=== PATIENT | male | born 1960 | race African-American/Black ===

== ENCOUNTER 2016-12-11 01:28 | Observation (INO) | payer OTHER ==
[~2016-12-11] VITALS: Ht 185.4 cm; Wt 109.1 kg
--- NOTE | 2016-12-11 01:39 | PHYS DOC ---
Adult General HPI HPI Patient is a 56 year old -Micron[place] Micron[place] male who presents with status. According to EMS he was trying to give money away to someone who wasn't there and seeing a dog it wasn't there. The patient states he lives by himself. He thinks he is at and has stomatitis several times even though I told several times that he is at [place]. He states he called transportation to be transported but is unsure why he needs to be transported. He denies any fevers chills nausea or vomiting. He denies any abdominal pain or dysuria. He denies any neck pain or headache. He states he's been at the [facility] several times and sometimes he has seizures. Review of Systems Review of Systems Constitutional: Denies fever or chills [] Eyes: Denies change in visual acuity, redness, or eye pain [] HENT: Denies nasal congestion or sore throat [] Respiratory: Denies cough or shortness of breath [] Cardiovascular: No additional information not addressed in HPI [] GI: Denies abdominal pain, nausea, vomiting, bloody stools or diarrhea [] : Denies dysuria or hematuria [] Musculoskeletal: Denies back pain or joint pain [] Integument: Denies rash or skin lesions [] Neurologic: Denies headache, focal weakness or sensory changes [] Endocrine: Denies polyuria or polydipsia [] Current Medications Current Medications Current Medications Medications (Trade) Dose Ordered Sig/Jacob Start Time Stop Time Status Last Admin Dose Admin Ceftriaxone Sodium 1 gm/ Sodium Chloride 50 ml @ 100 mls/hr Q24H 12/11/16 03:30 UNV Sodium Chloride 1,000 ml @ 1,000 mls/hr 1X ONCE 12/11/16 03:00 12/11/16 03:59 12/11/16 02:45 1,000 MLS/HR Allergies Allergies Allergies Coded Allergies Type Severity Reaction Last Updated Verified No Known Drug Allergies 12/11/16 No Physical Exam Physical Exam Constitutional: Well developed, well nourished, no acute distress, non-toxic appearance. [] HENT: Normocephalic, atraumatic, bilateral external ears normal, oropharynx moist, no oral exudates, nose normal. [] Eyes: PERRLA, EOMI, conjunctiva normal, no discharge. [] Neck: Normal range of motion, no tenderness, supple, no stridor. [] Cardiovascular:Heart rate regular rhythm, no murmur [] Lungs & Thorax: Bilateral breath sounds clear to auscultation [] Abdomen: Bowel sounds normal, soft, no tenderness, no masses, no pulsatile masses. [] Skin: Warm, dry, no erythema, no rash. [] Back: No tenderness, no CVA tenderness. [] Extremities: No tenderness, no cyanosis, no clubbing, ROM intact, no edema. [] Neurologic: Alert and oriented X 1, normal motor function, normal sensory function, no focal deficits noted. [] Psychologic: Affect normal, mood normal. [] Current Patient Data Vital Signs Vital Signs Date Time Temp Pulse Resp B/P (MAP) Pulse Ox O2 Delivery O2 Flow Rate FiO2 12/11/16 01:56 98.3 125 25 135/93 (107) 100 Room Air 98.3 Lab Values Laboratory Tests Test 12/11/16 01:54 12/11/16 02:18 White Blood Count 6.5 x10^3/uL (4.0-11.0) Red Blood Count 3.75 x10^6/uL (4.30-5.70) L Hemoglobin 12.9 g/dL (13.0-17.5) L Hematocrit 37.4 % (39.0-53.0) L Mean Corpuscular Volume 100 fL (79-100) Mean Corpuscular Hemoglobin 34 pg (25-35) Mean Corpuscular Hemoglobin Concent 35 g/dL (31-37) Red Cell Distribution Width 14.2 % (11.5-14.5) Platelet Count 212 x10^3/uL (140-400) Neutrophils (%) (Auto) 68 % (31-73) Lymphocytes (%) (Auto) 21 % (24-48) L Monocytes (%) (Auto) 10 % (0-9) H Eosinophils (%) (Auto) 0 % (0-3) Basophils (%) (Auto) 2 % (0-3) Neutrophils # (Auto) 4.4 x10^3uL (1.8-7.7) Lymphocytes # (Auto) 1.3 x10^3/uL (1.0-4.8) Monocytes # (Auto) 0.6 x10^3/uL (0.0-1.1) Eosinophils # (Auto) 0.0 x10^3/uL (0.0-0.7) Basophils # (Auto) 0.1 x10^3/uL (0.0-0.2) Prothrombin Time 13.1 SEC (11.7-14.0) Prothrombin Time INR 1.1 (0.8-1.1) PTT 32 SEC (24-38) Sodium Level 148 mmol/L (136-145) H Potassium Level 4.1 mmol/L (3.5-5.1) Chloride Level 109 mmol/L (98-107) H Carbon Dioxide Level 26 mmol/L (21-32) Anion Gap 13 (6-14) Blood Urea Nitrogen 26 mg/dL (8-26) Creatinine 1.6 mg/dL (0.7-1.3) H Estimated GFR (Cockcroft-Gault) 44.9 Glucose Level 132 mg/dL (70-99) H Calcium Level 8.6 mg/dL (8.5-10.1) Magnesium Level 2.1 mg/dL (1.8-2.4) Total Bilirubin 0.4 mg/dL (0.2-1.0) Direct Bilirubin 0.1 mg/dL (0.0-0.2) Aspartate Amino Transferase (AST) 37 U/L (15-37) Alanine Aminotransferase (ALT) 20 U/L (16-63) Alkaline Phosphatase 88 U/L (46-116) Ammonia 16 mcmol/L (11-34) Creatine Kinase 420 U/L (39-308) H Creatine Kinase MB (Mass) 2.2 ng/mL (0.0-3.6) Creatine Kinase MB Relative Index 0.5 % (0-4) Troponin I Quantitative < 0.017 ng/mL (0.000-0.055) VC-Bbp-L-Type Natriuretic Peptide 124 pg/mL (0-124) Total Protein 6.9 g/dL (6.4-8.2) Albumin 2.9 g/dL (3.4-5.0) L Salicylates Level < 2.8 mg/dL (2.8-20.0) L Salicylate Last Dose Date Unknown Salicylate Last Dose Time Unknown Acetaminophen Level < 2.0 mcg/ml (10-30) L Acetaminophen Last Dose Date Unknown Acetaminophen Last Dose Time Unknown Ethyl Alcohol Level < 10 mg/dL (0-10) Urine Collection Type Unknown Urine Color Tenisha Urine Clarity Clear Urine pH 5.5 Urine Specific [place] >=1.030 Urine Protein >=300 mg/dL (NEG-TRACE) Urine Glucose (UA) Negative mg/dL (NEG) Urine Ketones (Stick) Trace mg/dL (NEG) Urine Blood Small (NEG) Urine Nitrite Negative (NEG) Urine Bilirubin Negative (NEG) Urine Urobilinogen Dipstick 0.2 mg/dL (0.2 mg/dL) Urine Leukocyte Esterase Trace (NEG) Urine RBC 6-10 /HPF (0-2) Urine WBC 11-20 /HPF (0-4) Urine Squamous Epithelial Cells Few /LPF Urine Bacteria Moderate /HPF (0-FEW) Urine Hyaline Casts Many /HPF Urine Granular Casts Few /HPF Urine Mucus Marked /LPF Urine Opiates Screen Neg (NEG) Urine Methadone Screen Neg (NEG) Urine Barbiturates Neg (NEG) Urine Phencyclidine Screen Neg (NEG) Urine Amphetamine/Methamphetamine Neg (NEG) Urine Benzodiazepines Screen Neg (NEG) Urine Cocaine Screen Neg (NEG) Urine Cannabinoids Screen Pos (NEG) Urine Ethyl Alcohol Neg (NEG) Laboratory Tests 12/11/16 01:54 Laboratory Tests 12/11/16 01:54 EKG EKG EKG shows sinus tachycardia 122 beats per minute without any ST elevations or T- wave inversions appreciated, normal axis, QTC 4 and 40 ms, as interpreted by me. Radiology/Procedures Radiology/Procedures [facility] [address] [place] [address] IMAGING REPORT Signed PATIENT: СЕРГЕЙ CALERO ACCOUNT: [id number] : 1960 LOCATION: ER AGE: 56 SEX: M EXAM STATUS: PRE ER ORD. PHYSICIAN: DELORES MONTGOMERY MD REASON: AMS PROCEDURE: CT HEAD AND CERVICAL SPINE WO CT scan of the head without contrast 12/11/2016 Clinical History: Hallucinations and altered mental status. Technique: Unenhanced, contiguous, 5 mm axial sections were obtained through the head. One or more of the following individualized dose reduction techniques were utilized for this study: 1. Automated exposure control. 2. Adjustment of the mA and/or kV according to patient size. 3. Use of iterative reconstruction technique. Findings: No previous imaging studies are available for comparison. There is generalized parenchymal atrophy. Areas of decreased attenuation are seen within the periventricular and subcortical white matter of both cerebral hemispheres consistent with areas of small vessel ischemic disease. No acute parenchymal abnormality is seen. No extra-axial fluid collection is noted. No skull fracture is seen. Impression: No acute intracranial abnormality is seen. CT scan of the cervical spine without contrast 12/11/2016 Clinical history: Neck pain possible injury. Technique: Unenhanced, contiguous, 0.625 mm axial sections were obtained through the cervical spine. Axial, coronal and sagittal reconstructed images were obtained. Findings: Sagittal and coronal reconstructed images demonstrate minimal lateral curvature of the cervical spine convex to the right. There is straightening of the normal cervical lordosis. Degenerative changes are seen involving the mid and lower cervical spine disc spaces consisting of vertebral endplate sclerosis and minimal to mild anterior vertebral body osteophyte formation. No fracture or subluxation of the cervical vertebrae is seen. Degenerative changes are seen involving the uncovertebral and facet joints throughout the cervical disc spaces. Moderate atherosclerotic calcifications is seen in the region of the carotid bifurcations. Impression: No fracture or subluxation of the cervical vertebra is identified. Electronically signed by: Wesley Agarwal MD (12/11/2016 2:28 AM) DICTATED and SIGNED BY: WESLEY AGARWAL MD DATE: 12/11/16222 CC: DELORES MONTGOMERY MD ~ 2 view chest x-ray did not show any focal consolidations, bony abnormality, pneumothorax, as interpreted by me. Impressions: Altered mental status UTI Course & Med Decision Making Course & Med Decision Making Pertinent Labs and Imaging studies reviewed. (See chart for details) [Patient presents to ER with history from EMS that at home he was confused and hallucinating. Here he thinks is at the [facility] you'll note from numerous times a set [place]. He is unable tell me what month it is or day. Earlier when he first arrived she was able to tell triage nurse that it was December 11. Chest x-ray, CT head and neck are nonacute. He does have a UTI on labs. Denies any symptoms or urinary infection. We will treat with Rocephin 1 g and admit. Patient I suspect has a psychiatric disorder that I am not aware of as of yet. Inpatient team can ask the psychiatric assessment team to be consult to help clarify. I have ordered records from the [facility] to help clarify his past medical history. His sodium is slightly elevated and a suspect this is secondary to dehydration and he is receiving IV fluids. He is being admitted to the hospitalist in stable condition at this time.] Dragon Disclaimer Dragon Disclaimer This electronic medical record was generated, in whole or in part, using a voice recognition dictation system. Departure Departure Impression: Primary Impression: Altered mental status Disposition: 09 ADMITTED INPATIENT Admitting Physician: Other Condition: STABLE Problem Qualifiers Primary Impression: Altered mental status Altered mental status type: transient alteration of awareness Qualified Codes : R40.4 - Transient alteration of awareness DELORES MONTGOMERY MD Dec 11, 2016 01:39
[2016-12-11 02:04] LABS: BASO # 0.1 x10^3/uL (0.0-0.2); BASO % 2 % (0-3); EOS % 0 % (0-3); HEMATOCRIT 37.4 % (39.0-53.0); HEMOGLOBIN 12.9 g/dL (13.0-17.5); LYMPH # 1.3 x10^3/uL (1.0-4.8); LYMPH % 21 % (24-48); MEAN CORPUSCULAR HEMOGLOBIN 34 pg (25-35); MEAN CORPUSCULAR HGB CONC 35 g/dL (31-37); MEAN CORPUSCULAR VOLUME 100 fL (79-100); MONO % 10 % (0-9); NEUT % 68 % (31-73); PLATELET COUNT 212 x10^3/uL (140-400); RED BLOOD COUNT 3.75 x10^6/uL (4.30-5.70); RED CELL DISTRIBUTION WIDTH 14.2 % (11.5-14.5); WHITE BLOOD COUNT 6.5 x10^3/uL (4.0-11.0)
[2016-12-11 02:22] LABS: INR 1.1 (0.8-1.1); PROTHROMBIN TIME PATIENT 13.1 SEC (11.7-14.0)
[2016-12-11 02:31] LABS: CALCIUM 8.6 mg/dL (8.5-10.1); CREATININE 1.6 mg/dL (0.7-1.3); GFR 44.9; POTASSIUM 4.1 mmol/L (3.5-5.1)
--- NOTE | 2016-12-11 02:32 | RAD ---
CT scan of the head without contrast 12/11/2016 Clinical History: Hallucinations and altered mental status. Technique: Unenhanced, contiguous, 5 mm axial sections were obtained through the head. One or more of the following individualized dose reduction techniques were utilized for this study: 1. Automated exposure control. 2. Adjustment of the mA and/or kV according to patient size. 3. Use of iterative reconstruction technique. Findings: No previous imaging studies are available for comparison. There is generalized parenchymal atrophy. Areas of decreased attenuation are seen within the periventricular and subcortical white matter of both cerebral hemispheres consistent with areas of small vessel ischemic disease. No acute parenchymal abnormality is seen. No extra-axial fluid collection is noted. No skull fracture is seen. Impression: No acute intracranial abnormality is seen. CT scan of the cervical spine without contrast 12/11/2016 Clinical history: Neck pain possible injury. Technique: Unenhanced, contiguous, 0.625 mm axial sections were obtained through the cervical spine. Axial, coronal and sagittal reconstructed images were obtained. Findings: Sagittal and coronal reconstructed images demonstrate minimal lateral curvature of the cervical spine convex to the right. There is straightening of the normal cervical lordosis. Degenerative changes are seen involving the mid and lower cervical spine disc spaces consisting of vertebral endplate sclerosis and minimal to mild anterior vertebral body osteophyte formation. No fracture or subluxation of the cervical vertebrae is seen. Degenerative changes are seen involving the uncovertebral and facet joints throughout the cervical disc spaces. Moderate atherosclerotic calcifications is seen in the region of the carotid bifurcations. Impression: No fracture or subluxation of the cervical vertebra is identified. Electronically signed by: Wesley Agarwal MD (12/11/2016 2:28 AM)
[2016-12-11 02:37] LABS: ALBUMIN 2.9 g/dL (3.4-5.0); CKMB MASS 2.2 ng/mL (0.0-3.6); DIRECT BILIRUBIN 0.1 mg/dL (0.0-0.2); MAGNESIUM 2.1 mg/dL (1.8-2.4); TOTAL BILIRUBIN 0.4 mg/dL (0.2-1.0); TOTAL PROTEIN 6.9 g/dL (6.4-8.2)
[2016-12-11 02:39] LABS: ETHANOL < 10 mg/dL (0-10)
[2016-12-11 02:46] LABS: BILIRUBIN,URINE NEGATIVE (NEG); GLUCOSE,URINE NEGATIVE (NEG); NITRITE,URINE NEGATIVE (NEG); PH,URINE 5.5; PROTEIN,URINE >=300 mg/dL (NEG-TRACE); UROBILINOGEN,URINE 0.2 mg/dL (0.2 mg/dL)
[2016-12-11 02:52] LABS: BARBITURATES NEG (NEG); BENZODIAZEPINES NEG (NEG); CANNABINOIDS POS (NEG); COCAINE NEG (NEG); METHADONE NEG (NEG); OPIATES NEG (NEG); PHENCYCLIDINE NEG (NEG)
[2016-12-11] MEDS ORDERED: IV NORMAL SALINE 1000ML BAG 1,000 ML IV ONE (03:00)
[2016-12-11 03:12] LABS: BACTERIA,URINE MODERATE /HPF (0-FEW); SQUAMOUS EPITHELIAL CELL,UR FEW /LPF
[2016-12-11] MEDS ORDERED: ONDANSETRON PF 4 MG/2 ML VIAL. IV PRN (03:30)
[2016-12-11 04:00] VITALS: BP 165/106
[2016-12-11 07:00] VITALS: BP 137/84
--- NOTE | 2016-12-11 07:14 | RAD ---
Chest, 2 views, 12/11/2016: History: Altered mental status The heart size and pulmonary vascularity are normal. No pulmonary infiltrates are seen. There is no evidence of pleural fluid. Mild spurring is present in the spine. IMPRESSION: No acute cardiopulmonary abnormality is detected.
--- NOTE | 2016-12-11 08:20 | EKG ---
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
--- NOTE | 2016-12-11 08:48 | PDOC1 ---
History and Physical Date of Admission Date of Admission DATE: 12/11/16 TIME: 08:42 Identification/Chief Complaint Chief Complaint Hallucinations UTI Problems: Source Source: Chart review, Patient History of Present Illness History of Present Illness MR Hawkins is a 56 year old -[place] man who presented to the ER after his mother called EMS for unusual behavior, trying to give money away to someone who wasn't there and seeing a dog it wasn't there. In the ER, he was not oriented to time or place. He denied any fever or chills, nausea or vomiting. He denies any abdominal pain or dysuria. He denies any neck pain or headache. He states he's been at the [facility] several times and sometimes he has seizures. Records from indicate history of seizures and other medical issues, no mention of psychiatric illnesses. UA was consistent with UTI. Past Medical History Past Medical History admits to HTN and DM as well as seizures. emphatically denies Psych history. Family History Family History: Alcohol Abuse, Diabetes Social History Smoke: No ALCOHOL: other (quit) Drugs: None Current Problem List Problem List Problems Medical Problems: (1) Altered mental status Status: Acute Problems: Current Medications Current Medications Current Medications Sodium Chloride 1,000 ml @ 1,000 mls/hr 1X ONCE IV Last administered on 02:45; Start 12/11/16 at 03:00; Stop 12/11/16 at 03:59; Status DC Ceftriaxone Sodium 1 gm/ Sodium Chloride 50 ml @ 100 mls/hr Q24H IV ; Start 12/12/16 at 06:00 Ceftriaxone Sodium 50 ml @ 100 mls/hr 1X ONCE IV Last administered on 03:34; Start 12/11/16 at 03:30; Stop 12/11/16 at 03:59; Status DC Ondansetron HCl (Zofran) 4 mg PRN Q8HRS PRN IV NAUSEA/VOMITING; Start 12/11/16 at 03:30; Stop 12/12/16 at 03:29 Allergies Allergies: Coded Allergies: No Known Drug Allergies (Unverified , 12/11/16) ROS Review of System denies any sx in entire organ system review. Has no recollection about events yesterday. Physical Exam General: Alert, Cooperative, No acute distress HEENT: Atraumatic, EOMI Lungs: Clear to auscultation Heart: RRR Abdomen: Normal bowel sounds, Soft, No tenderness Extremities: No clubbing, No edema Skin: No rashes Neuro: Strength at 5/5 X4 ext, Normal tone Vitals Vitals Vital Signs Date Time Temp Pulse Resp B/P (MAP) Pulse Ox O2 Delivery O2 Flow Rate FiO2 12/11/16 04:00 98.1 101 18 165/106 (125) 100 Room Air 98.1 Labs Labs Laboratory Tests Test 12/11/16 01:54 12/11/16 02:18 12/11/16 07:17 White Blood Count 6.5 x10^3/uL (4.0-11.0) Red Blood Count 3.75 x10^6/uL (4.30-5.70) Hemoglobin 12.9 g/dL (13.0-17.5) Hematocrit 37.4 % (39.0-53.0) Mean Corpuscular Volume 100 fL (79-100) Mean Corpuscular Hemoglobin 34 pg (25-35) Mean Corpuscular Hemoglobin Concent 35 g/dL (31-37) Red Cell Distribution Width 14.2 % (11.5-14.5) Platelet Count 212 x10^3/uL (140-400) Neutrophils (%) (Auto) 68 % (31-73) Lymphocytes (%) (Auto) 21 % (24-48) Monocytes (%) (Auto) 10 % (0-9) Eosinophils (%) (Auto) 0 % (0-3) Basophils (%) (Auto) 2 % (0-3) Neutrophils # (Auto) 4.4 x10^3uL (1.8-7.7) Lymphocytes # (Auto) 1.3 x10^3/uL (1.0-4.8) Monocytes # (Auto) 0.6 x10^3/uL (0.0-1.1) Eosinophils # (Auto) 0.0 x10^3/uL (0.0-0.7) Basophils # (Auto) 0.1 x10^3/uL (0.0-0.2) Prothrombin Time 13.1 SEC (11.7-14.0) Prothromb Time International Ratio 1.1 (0.8-1.1) Activated Partial Thromboplast Time 32 SEC (24-38) Sodium Level 148 mmol/L (136-145) Potassium Level 4.1 mmol/L (3.5-5.1) Chloride Level 109 mmol/L (98-107) Carbon Dioxide Level 26 mmol/L (21-32) Anion Gap 13 (6-14) Blood Urea Nitrogen 26 mg/dL (8-26) Creatinine 1.6 mg/dL (0.7-1.3) Estimated GFR (Cockcroft-Gault) 44.9 Glucose Level 132 mg/dL (70-99) Calcium Level 8.6 mg/dL (8.5-10.1) Magnesium Level 2.1 mg/dL (1.8-2.4) Total Bilirubin 0.4 mg/dL (0.2-1.0) Direct Bilirubin 0.1 mg/dL (0.0-0.2) Aspartate Amino Transf (AST/SGOT) 37 U/L (15-37) Alanine Aminotransferase (ALT/SGPT) 20 U/L (16-63) Alkaline Phosphatase 88 U/L (46-116) Ammonia 16 mcmol/L (11-34) Creatine Kinase 420 U/L (39-308) Creatine Kinase MB (Mass) 2.2 ng/mL (0.0-3.6) Creatine Kinase MB Relative Index 0.5 % (0-4) Troponin I Quantitative < 0.017 ng/mL (0.000-0.055) CJ-Mxf-N-Type Natriuretic Peptide 124 pg/mL (0-124) Total Protein 6.9 g/dL (6.4-8.2) Albumin 2.9 g/dL (3.4-5.0) Salicylates Level < 2.8 mg/dL (2.8-20.0) Salicylate Last Dose Date Unknown Salicylate Last Dose Time Unknown Acetaminophen Level < 2.0 mcg/ml (10-30) Acetaminophen Last Dose Date Unknown Acetaminophen Last Dose Time Unknown Ethyl Alcohol Level < 10 mg/dL (0-10) Urine Collection Type Unknown Urine Color Tenisha Urine Clarity Clear Urine pH 5.5 Urine Specific [place] >=1.030 Urine Protein >=300 mg/dL (NEG-TRACE) Urine Glucose (UA) Negative mg/dL (NEG) Urine Ketones (Stick) Trace mg/dL (NEG) Urine Blood Small (NEG) Urine Nitrite Negative (NEG) Urine Bilirubin Negative (NEG) Urine Urobilinogen Dipstick 0.2 mg/dL (0.2 mg/dL) Urine Leukocyte Esterase Trace (NEG) Urine RBC 6-10 /HPF (0-2) Urine WBC 11-20 /HPF (0-4) Urine Squamous Epithelial Cells Few /LPF Urine Bacteria Moderate /HPF (0-FEW) Urine Hyaline Casts Many /HPF Urine Granular Casts Few /HPF Urine Mucus Marked /LPF Urine Opiates Screen Neg (NEG) Urine Methadone Screen Neg (NEG) Urine Barbiturates Neg (NEG) Urine Phencyclidine Screen Neg (NEG) Urine Amphetamine/Methamphetamine Neg (NEG) Urine Benzodiazepines Screen Neg (NEG) Urine Cocaine Screen Neg (NEG) Urine Cannabinoids Screen Pos (NEG) Urine Ethyl Alcohol Neg (NEG) Glucose (Fingerstick) 112 mg/dL (70-99) Laboratory Tests Test 12/11/16 01:54 12/11/16 02:18 12/11/16 07:17 White Blood Count 6.5 x10^3/uL (4.0-11.0) Red Blood Count 3.75 x10^6/uL (4.30-5.70) Hemoglobin 12.9 g/dL (13.0-17.5) Hematocrit 37.4 % (39.0-53.0) Mean Corpuscular Volume 100 fL (79-100) Mean Corpuscular Hemoglobin 34 pg (25-35) Mean Corpuscular Hemoglobin Concent 35 g/dL (31-37) Red Cell Distribution Width 14.2 % (11.5-14.5) Platelet Count 212 x10^3/uL (140-400) Neutrophils (%) (Auto) 68 % (31-73) Lymphocytes (%) (Auto) 21 % (24-48) Monocytes (%) (Auto) 10 % (0-9) Eosinophils (%) (Auto) 0 % (0-3) Basophils (%) (Auto) 2 % (0-3) Neutrophils # (Auto) 4.4 x10^3uL (1.8-7.7) Lymphocytes # (Auto) 1.3 x10^3/uL (1.0-4.8) Monocytes # (Auto) 0.6 x10^3/uL (0.0-1.1) Eosinophils # (Auto) 0.0 x10^3/uL (0.0-0.7) Basophils # (Auto) 0.1 x10^3/uL (0.0-0.2) Prothrombin Time 13.1 SEC (11.7-14.0) Prothromb Time International Ratio 1.1 (0.8-1.1) Activated Partial Thromboplast Time 32 SEC (24-38) Sodium Level 148 mmol/L (136-145) Potassium Level 4.1 mmol/L (3.5-5.1) Chloride Level 109 mmol/L (98-107) Carbon Dioxide Level 26 mmol/L (21-32) Anion Gap 13 (6-14) Blood Urea Nitrogen 26 mg/dL (8-26) Creatinine 1.6 mg/dL (0.7-1.3) Estimated GFR (Cockcroft-Gault) 44.9 Glucose Level 132 mg/dL (70-99) Calcium Level 8.6 mg/dL (8.5-10.1) Magnesium Level 2.1 mg/dL (1.8-2.4) Total Bilirubin 0.4 mg/dL (0.2-1.0) Direct Bilirubin 0.1 mg/dL (0.0-0.2) Aspartate Amino Transf (AST/SGOT) 37 U/L (15-37) Alanine Aminotransferase (ALT/SGPT) 20 U/L (16-63) Alkaline Phosphatase 88 U/L (46-116) Ammonia 16 mcmol/L (11-34) Creatine Kinase 420 U/L (39-308) Creatine Kinase MB (Mass) 2.2 ng/mL (0.0-3.6) Creatine Kinase MB Relative Index 0.5 % (0-4) Troponin I Quantitative < 0.017 ng/mL (0.000-0.055) XH-Mks-J-Type Natriuretic Peptide 124 pg/mL (0-124) Total Protein 6.9 g/dL (6.4-8.2) Albumin 2.9 g/dL (3.4-5.0) Salicylates Level < 2.8 mg/dL (2.8-20.0) Salicylate Last Dose Date Unknown Salicylate Last Dose Time Unknown Acetaminophen Level < 2.0 mcg/ml (10-30) Acetaminophen Last Dose Date Unknown Acetaminophen Last Dose Time Unknown Ethyl Alcohol Level < 10 mg/dL (0-10) Urine Collection Type Unknown Urine Color Tenisha Urine Clarity Clear Urine pH 5.5 Urine Specific [place] >=1.030 Urine Protein >=300 mg/dL (NEG-TRACE) Urine Glucose (UA) Negative mg/dL (NEG) Urine Ketones (Stick) Trace mg/dL (NEG) Urine Blood Small (NEG) Urine Nitrite Negative (NEG) Urine Bilirubin Negative (NEG) Urine Urobilinogen Dipstick 0.2 mg/dL (0.2 mg/dL) Urine Leukocyte Esterase Trace (NEG) Urine RBC 6-10 /HPF (0-2) Urine WBC 11-20 /HPF (0-4) Urine Squamous Epithelial Cells Few /LPF Urine Bacteria Moderate /HPF (0-FEW) Urine Hyaline Casts Many /HPF Urine Granular Casts Few /HPF Urine Mucus Marked /LPF Urine Opiates Screen Neg (NEG) Urine Methadone Screen Neg (NEG) Urine Barbiturates Neg (NEG) Urine Phencyclidine Screen Neg (NEG) Urine Amphetamine/Methamphetamine Neg (NEG) Urine Benzodiazepines Screen Neg (NEG) Urine Cocaine Screen Neg (NEG) Urine Cannabinoids Screen Pos (NEG) Urine Ethyl Alcohol Neg (NEG) Glucose (Fingerstick) 112 mg/dL (70-99) VTE Prophylaxis Ordered VTE Prophylaxis Devices: No VTE Pharmacological Prophylaxi: Yes Assessment/Plan Assessment/Plan Mrs Hawkins is 56 y/o man with DM, epilepsy, on disability, who presented after visual hallucinations and odd behavior. He denies any ongoing hallucinations at this point. Speech is still pressured, , tries to explain his behavior on the constant bickering of his mother, when he just wants his peace. suspicion for Psych issue (epma). was admitted at for over 2 weeks , according to him for seizure. eval by PAT team In the ER, drug screen was negative save for cannabis. UA however showed possible UTI. He is on empiric ceftriaxone until culture and sensitivities are available. PAMELA MAN MD Dec 11, 2016 08:48
[2016-12-11 10:49] VITALS: BP 167/114
--- NOTE | 2016-12-11 12:23 | ACF ---
Admission Forms Criteria MENTAL STATUS CHANGE Clinical Indications for Inpatient Care (Place 'X' for any and all applicable criteria): Ongoing inpatient care may be needed for 1 or more of the following(1)(2)(3)(5)( 6): [X]I. Suspected serious etiology (eg, medical disorder, ALLOCATIONS CLERK event) of altered mental status [ ]II. Danger to self or others not manageable at lower level of care [ ]III. Grave disability (eg, inability to perform self care necessary at lower level of care) [ ]IV. Agitation or inappropriate behavior interfering with care for primary condition (eg, attempting to discontinue lines or drains prematurely, unable to cooperate with respiratory care) [ ]V. Delirium [A] [D][E] as described by 1 or more of the following(26): [ ]a) Delirium due to alcohol or sedative [F] withdrawal [ ]b) Delirium of uncertain etiology that has not responded to appropriate empiric treatment [ ]c) Delirium that prevents performance of a life-sustaining function (eg, feeding or hydrating oneself) [ ]. General contraindications and/or Inappropriate clinical situations for Observational Care in patients with Mental Status Change, when ANY ONE of the following is required: [ ]a) Prediction of prolongation of LOS based on ANY ONE of the following may be considered as a contraindication for observational care 2, 3, 4, 5, 6, 7, 8, 9, 10, 11 [ ]i) Age > 65 yrs. [ ]ii) Patient arriving by ambulance [ ]iii) Patient with high acuity [ ]iv) Patient requiring vital sign monitoring [ ]v) Patient on IV medication [ ]b) Systolic blood pressures greater than or equal to 180mmHg 3, 12 [ ]c) Patient with altered mental status including delirium and other alteration of consciousness, (3) [ ]d) Patient whose discharge disposition will be to a assisted home or rehabilitation home should not be managed in Emergency Department Observation Unit. CMS rule requires 3 days hospital stay before such placement.3,13 [ ]e) Patient with failure to thrive due to broad array of etiologies 3,16,17 [ ]f) Inability to ambulate 3,14 Extended stay beyond goal length of stay for the primary condition may be needed until ALL of the following are present(3)(5): [ ]a) Underlying medical etiology of mental status change is absent, or has been established and adequately treated [ ]b) Danger to self or others is absent or manageable at lower level of care. [ ]c) Behavior crisis management, including physical or chemical restraints, is not required or available at lower level of car [ ]d) Substance or alcohol withdrawal is absent or manageable at lower level of care. [ ]e) Behavioral symptoms (eg, agitation, somnolence, inappropriate behavior) are absent, or are manageable at lower level of care. The original [facility] content created by [facility] has been revised. The portions of the content which have been revised are identified through the use of italic text or in bold, and [facility] has neither reviewed nor approved the modified material. All other unmodified content is copyright [facility]. Please see references footnoted in the original [facility] edition 2016 Admission Criteria Met?: Yes LOUIS HAGAN Dec 11, 2016 12:23
[2016-12-11 14:31] VITALS: BP 141/86
[2016-12-11 19:00] VITALS: BP 150/97
[2016-12-11 23:10] VITALS: BP 177/101
[2016-12-12 03:14] VITALS: BP 152/100
[2016-12-12 07:00] VITALS: BP 135/87
[2016-12-12] MEDS ORDERED: HYDROcodone/APAP 5/325MG 1 TAB TABLET PO PRN (08:00)
[2016-12-12] MEDS ORDERED: DEXTROSE 50% 25 GM / 50ML DISP.SYRIN. IV PRN (08:30)
[2016-12-12] MEDS ORDERED: ACETAMINOPHEN 500 MG TABLET PO PRN (08:30)
[2016-12-12] MEDS ORDERED: ONDANSETRON PF 4 MG/2 ML VIAL. IV PRN (08:30)
[2016-12-12] MEDS ORDERED: DICLOFENAC SODIUM 1% TOPICAL GEL 100GM TUBE. TP SCH (09:00)
[2016-12-12 09:34] LABS: BASO # 0.1 x10^3/uL (0.0-0.2); BASO % 2 % (0-3); EOS % 2 % (0-3); HEMATOCRIT 36.1 % (39.0-53.0); LYMPH # 1.5 x10^3/uL (1.0-4.8); LYMPH % 29 % (24-48); MEAN CORPUSCULAR HEMOGLOBIN 35 pg (25-35); MEAN CORPUSCULAR HGB CONC 36 g/dL (31-37); MEAN CORPUSCULAR VOLUME 96 fL (79-100); MONO % 9 % (0-9); NEUT % 58 % (31-73); PLATELET COUNT 247 x10^3/uL (140-400); RED BLOOD COUNT 3.76 x10^6/uL (4.30-5.70); WHITE BLOOD COUNT 5.4 x10^3/uL (4.0-11.0)
[2016-12-12 09:54] LABS: CALCIUM 9.3 mg/dL (8.5-10.1); CREATININE 1.1 mg/dL (0.7-1.3); GFR 83.8; POTASSIUM 3.6 mmol/L (3.5-5.1)
[2016-12-12 11:00] VITALS: BP 165/101
[2016-12-12] MEDS ORDERED: CIPR500T94 PO (11:43)
[2016-12-12] MEDS ORDERED: LABETALOL 20 MG/4 ML DISP.SYRIN. IVP ONE (11:45)
--- NOTE | 2016-12-12 11:46 | PDOC3 ---
Discharge Summary Visit Information Date of Admission: Dec 11, 2016 Date of Discharge: Dec 12, 2016 Admitting Diagnosis Comment: UTI, asymptomatic, incidental HAllucinations PErsonal stress Final Diagnosis Problems Medical Problems: (1) Altered mental status Status: Acute Brief Hospital Course Allergies Allergies Coded Allergies Type Severity Reaction Last Updated Verified No Known Drug Allergies 12/11/16 No Vital Signs Vital Signs Date Time Temp Pulse Resp B/P (MAP) Pulse Ox O2 Delivery O2 Flow Rate FiO2 12/12/16 11:00 97.5 88 20 165/101 (122) 97 Room Air 97.5 Lab Results Laboratory Tests Test 12/11/16 01:54 12/11/16 02:18 12/11/16 07:17 12/11/16 09:09 White Blood Count 6.5 x10^3/uL (4.0-11.0) Red Blood Count 3.75 x10^6/uL (4.30-5.70) Hemoglobin 12.9 g/dL (13.0-17.5) Hematocrit 37.4 % (39.0-53.0) Mean Corpuscular Volume 100 fL (79-100) Mean Corpuscular Hemoglobin 34 pg (25-35) Mean Corpuscular Hemoglobin Concent 35 g/dL (31-37) Red Cell Distribution Width 14.2 % (11.5-14.5) Platelet Count 212 x10^3/uL (140-400) Neutrophils (%) (Auto) 68 % (31-73) Lymphocytes (%) (Auto) 21 % (24-48) Monocytes (%) (Auto) 10 % (0-9) Eosinophils (%) (Auto) 0 % (0-3) Basophils (%) (Auto) 2 % (0-3) Neutrophils # (Auto) 4.4 x10^3uL (1.8-7.7) Lymphocytes # (Auto) 1.3 x10^3/uL (1.0-4.8) Monocytes # (Auto) 0.6 x10^3/uL (0.0-1.1) Eosinophils # (Auto) 0.0 x10^3/uL (0.0-0.7) Basophils # (Auto) 0.1 x10^3/uL (0.0-0.2) Prothrombin Time 13.1 SEC (11.7-14.0) Prothromb Time International Ratio 1.1 (0.8-1.1) Activated Partial Thromboplast Time 32 SEC (24-38) Sodium Level 148 mmol/L (136-145) Potassium Level 4.1 mmol/L (3.5-5.1) Chloride Level 109 mmol/L (98-107) Carbon Dioxide Level 26 mmol/L (21-32) Anion Gap 13 (6-14) Blood Urea Nitrogen 26 mg/dL (8-26) Creatinine 1.6 mg/dL (0.7-1.3) Estimated GFR (Cockcroft-Gault) 44.9 Glucose Level 132 mg/dL (70-99) Calcium Level 8.6 mg/dL (8.5-10.1) Magnesium Level 2.1 mg/dL (1.8-2.4) Total Bilirubin 0.4 mg/dL (0.2-1.0) Direct Bilirubin 0.1 mg/dL (0.0-0.2) Aspartate Amino Transf (AST/SGOT) 37 U/L (15-37) Alanine Aminotransferase (ALT/SGPT) 20 U/L (16-63) Alkaline Phosphatase 88 U/L (46-116) Ammonia 16 mcmol/L (11-34) Creatine Kinase 420 U/L (39-308) Creatine Kinase MB (Mass) 2.2 ng/mL (0.0-3.6) Creatine Kinase MB Relative Index 0.5 % (0-4) Troponin I Quantitative < 0.017 ng/mL (0.000-0.055) 0.018 ng/mL (0.000-0.055) MI-Aad-O-Type Natriuretic Peptide 124 pg/mL (0-124) Total Protein 6.9 g/dL (6.4-8.2) Albumin 2.9 g/dL (3.4-5.0) Salicylates Level < 2.8 mg/dL (2.8-20.0) Salicylate Last Dose Date Unknown Salicylate Last Dose Time Unknown Acetaminophen Level < 2.0 mcg/ml (10-30) Acetaminophen Last Dose Date Unknown Acetaminophen Last Dose Time Unknown Ethyl Alcohol Level < 10 mg/dL (0-10) Urine Collection Type Unknown Urine Color Tenisha Urine Clarity Clear Urine pH 5.5 Urine Specific [place] >=1.030 Urine Protein >=300 mg/dL (NEG-TRACE) Urine Glucose (UA) Negative mg/dL (NEG) Urine Ketones (Stick) Trace mg/dL (NEG) Urine Blood Small (NEG) Urine Nitrite Negative (NEG) Urine Bilirubin Negative (NEG) Urine Urobilinogen Dipstick 0.2 mg/dL (0.2 mg/dL) Urine Leukocyte Esterase Trace (NEG) Urine RBC 6-10 /HPF (0-2) Urine WBC 11-20 /HPF (0-4) Urine Squamous Epithelial Cells Few /LPF Urine Bacteria Moderate /HPF (0-FEW) Urine Hyaline Casts Many /HPF Urine Granular Casts Few /HPF Urine Mucus Marked /LPF Urine Opiates Screen Neg (NEG) Urine Methadone Screen Neg (NEG) Urine Barbiturates Neg (NEG) Urine Phencyclidine Screen Neg (NEG) Urine Amphetamine/Methamphetamine Neg (NEG) Urine Benzodiazepines Screen Neg (NEG) Urine Cocaine Screen Neg (NEG) Urine Cannabinoids Screen Pos (NEG) Urine Ethyl Alcohol Neg (NEG) Glucose (Fingerstick) 112 mg/dL (70-99) Test 12/11/16 11:59 12/11/16 15:45 12/11/16 16:24 12/11/16 21:45 Glucose (Fingerstick) 107 mg/dL (70-99) 155 mg/dL (70-99) 126 mg/dL (70-99) Troponin I Quantitative < 0.017 ng/mL (0.000-0.055) Test 12/12/16 07:35 12/12/16 09:20 Glucose (Fingerstick) 122 mg/dL (70-99) White Blood Count 5.4 x10^3/uL (4.0-11.0) Red Blood Count 3.76 x10^6/uL (4.30-5.70) Hemoglobin 13.0 g/dL (13.0-17.5) Hematocrit 36.1 % (39.0-53.0) Mean Corpuscular Volume 96 fL (79-100) Mean Corpuscular Hemoglobin 35 pg (25-35) Mean Corpuscular Hemoglobin Concent 36 g/dL (31-37) Red Cell Distribution Width 14.0 % (11.5-14.5) Platelet Count 247 x10^3/uL (140-400) Neutrophils (%) (Auto) 58 % (31-73) Lymphocytes (%) (Auto) 29 % (24-48) Monocytes (%) (Auto) 9 % (0-9) Eosinophils (%) (Auto) 2 % (0-3) Basophils (%) (Auto) 2 % (0-3) Neutrophils # (Auto) 3.1 x10^3uL (1.8-7.7) Lymphocytes # (Auto) 1.5 x10^3/uL (1.0-4.8) Monocytes # (Auto) 0.5 x10^3/uL (0.0-1.1) Eosinophils # (Auto) 0.1 x10^3/uL (0.0-0.7) Basophils # (Auto) 0.1 x10^3/uL (0.0-0.2) Sodium Level 137 mmol/L (136-145) Potassium Level 3.6 mmol/L (3.5-5.1) Chloride Level 101 mmol/L (98-107) Carbon Dioxide Level 28 mmol/L (21-32) Anion Gap 8 (6-14) Blood Urea Nitrogen 15 mg/dL (8-26) Creatinine 1.1 mg/dL (0.7-1.3) Estimated GFR (Cockcroft-Gault) 83.8 Glucose Level 160 mg/dL (70-99) Calcium Level 9.3 mg/dL (8.5-10.1) Laboratory Tests Test 12/11/16 11:59 12/11/16 15:45 12/11/16 16:24 12/11/16 21:45 Glucose (Fingerstick) 107 mg/dL (70-99) 155 mg/dL (70-99) 126 mg/dL (70-99) Troponin I Quantitative < 0.017 ng/mL (0.000-0.055) Test 12/12/16 07:35 12/12/16 09:20 Glucose (Fingerstick) 122 mg/dL (70-99) White Blood Count 5.4 x10^3/uL (4.0-11.0) Red Blood Count 3.76 x10^6/uL (4.30-5.70) Hemoglobin 13.0 g/dL (13.0-17.5) Hematocrit 36.1 % (39.0-53.0) Mean Corpuscular Volume 96 fL (79-100) Mean Corpuscular Hemoglobin 35 pg (25-35) Mean Corpuscular Hemoglobin Concent 36 g/dL (31-37) Red Cell Distribution Width 14.0 % (11.5-14.5) Platelet Count 247 x10^3/uL (140-400) Neutrophils (%) (Auto) 58 % (31-73) Lymphocytes (%) (Auto) 29 % (24-48) Monocytes (%) (Auto) 9 % (0-9) Eosinophils (%) (Auto) 2 % (0-3) Basophils (%) (Auto) 2 % (0-3) Neutrophils # (Auto) 3.1 x10^3uL (1.8-7.7) Lymphocytes # (Auto) 1.5 x10^3/uL (1.0-4.8) Monocytes # (Auto) 0.5 x10^3/uL (0.0-1.1) Eosinophils # (Auto) 0.1 x10^3/uL (0.0-0.7) Basophils # (Auto) 0.1 x10^3/uL (0.0-0.2) Sodium Level 137 mmol/L (136-145) Potassium Level 3.6 mmol/L (3.5-5.1) Chloride Level 101 mmol/L (98-107) Carbon Dioxide Level 28 mmol/L (21-32) Anion Gap 8 (6-14) Blood Urea Nitrogen 15 mg/dL (8-26) Creatinine 1.1 mg/dL (0.7-1.3) Estimated GFR (Cockcroft-Gault) 83.8 Glucose Level 160 mg/dL (70-99) Calcium Level 9.3 mg/dL (8.5-10.1) Brief Hospital Course Mr. Hawkins is a 56 old AA male presented with odd behavior, hallucinations, Incidental UTI, Treated with rocephin, no reason for resistance, I am discharging on PO Cipro. PAT evaluated no reason for inpt psych, Dw sister at bedside and pt, PT admits to too much stress that pushed him over the edge, UDs neg. USed to see psych 5 yrs ago CLaims " he will be ok" PT seen and exmained Dc 31 mins 50% counselling Discharge Information Condition at Discharge: Improved, Stable Follow Up: Weeks (f fup OP psych) Disposition/Orders: D/C to Home JOSE MARCELINO MD Dec 12, 2016 11:46
[2016-12-12 11:53] VITALS: BP 165/101
[2016-12-12] MEDS ORDERED: INSULIN ASPART 300 UNITS/3 ML INSULN.PEN SQ SCH (12:00)
== END 2016-12-12 13:30 | disposition home or self-care (01) ==
LOC: ER 01:28 → 4 NORTH 03:20
PROVIDERS: ADMIT Internal Medicine Hematology & Oncology; ATTEND Internal Medicine Hematology & Oncology
DX: R41.82 Altered mental status, unspecified (principal); N39.0 Urinary tract infection, site not specified; E11.9 Type 2 diabetes mellitus without complications; I10 Essential (primary) hypertension; G40.909 Epilepsy, unspecified, not intractable, without status epilepticus; Z83.3 Family history of diabetes mellitus
CPT/HCPCS: 36415; 70450; 71020; 72125; 80048; 80076; 80329; 81001; 82140; 82553; 82962; 83735; 83880; 84484; 85027; 85610; 85730; 87086; 93005; 96361; 96365; 96375; 97162; 97530; 99285; G0378; G0480; G0481; G8978; G8979; G8980; J0690; J0696; J3490; J7030; G0379; J1815

== ENCOUNTER 2018-02-12 11:44 | Inpatient (IN) | payer OTHER ==
[~2018-02-12] VITALS: Ht 177.8 cm; Wt 108.2 kg
[~2018-02-12 11:44] MED LIST: CIPR500T94 PO; LEVE500T56 PO
[2018-02-12] MEDS ORDERED: levETIRAcetam 1,000 MG in IV DEXTROSE 5% 100ML 100 ML IV ONE (12:00)
[2018-02-12] MEDS ORDERED: IV NORMAL SALINE 1000ML BAG 1,000 ML IV ONE (12:00)
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
[2018-02-12 12:05] LABS: BASO % 1 % (0-3); EOS % 0 % (0-3); HEMATOCRIT 45.2 % (39.0-53.0); HEMOGLOBIN 15.6 g/dL (13.0-17.5); LYMPH % 29 % (24-48); MEAN CORPUSCULAR HEMOGLOBIN 35 pg (25-35); MEAN CORPUSCULAR HGB CONC 35 g/dL (31-37); MEAN CORPUSCULAR VOLUME 100 fL (79-100); MONO # 0.6 x10^3/uL (0.0-1.1); MONO % 9 % (0-9); NEUT # 4.2 x10^3uL (1.8-7.7); NEUT % 61 % (31-73); PLATELET COUNT 153 x10^3/uL (140-400); RED BLOOD COUNT 4.52 x10^6/uL (4.30-5.70); RED CELL DISTRIBUTION WIDTH 13.7 % (11.5-14.5); WHITE BLOOD COUNT 6.8 x10^3/uL (4.0-11.0)
[2018-02-12 12:22] LABS: CREATININE 1.9 mg/dL (0.7-1.3); GFR 44.4; MAGNESIUM 2.4 mg/dL (1.8-2.4); POTASSIUM 3.8 mmol/L (3.5-5.1)
--- NOTE | 2018-02-12 14:15 | RAD ---
CT HEAD WO CONTRAST Clinical indications: Seizure, not returning to baseline mental status; 5 mg of ativan given, pt still not holding still. nurse holding patients head, still motion. Comparison: November 22, 2017. Technique: Noncontrast axial cross sectional scanning of the head was performed. PQRS compliance Statement One or more of the following individualized dose reduction techniques were utilized for this study: 1. Automated exposure control 2. Adjustment of the mA and/or kV according to patient size 3. Use of iterative reconstruction technique Findings: No acute intracranial hemorrhage or midline shift or mass-effect or extra-axial fluid collection is seen. Chronic ventriculomegaly and generalized cerebral atrophy is seen. This is unchanged. No new focal hypodense area or sulci effacement is seen to indicate an acute infarct or edema radiographically. No skull fracture or pneumocephalus is seen. No opacification of the mastoid sinuses or the paranasal sinuses is seen. Impression: No new intracranial abnormality is seen. Electronically signed by: Juice Finnegan MD (02/12/2018 2:11 PM) [facility]
[2018-02-12] MEDS ORDERED: MORPHINE SULFATE 2 MG/ML VIAL. IV PRN (16:00)
[2018-02-12] MEDS ORDERED: DOCUSATE SODIUM 100 MG CAPSULE. PO PRN (16:00)
[2018-02-12] MEDS ORDERED: ONDANSETRON PF 4 MG/2 ML VIAL. IV PRN ×2 (16:00)
[2018-02-12] MEDS ORDERED: HALOPERIDOL LACTATE 5 MG/ML VIAL. IVP ONE (16:00)
[2018-02-12] MEDS ORDERED: traMADol 50 MG TABLET PO PRN (16:00)
[2018-02-12] MEDS ORDERED: ACETAMINOPHEN 325 MG TABLET. PO PRN (16:00)
--- NOTE | 2018-02-12 16:07 | PDOC1 ---
History and Physical Date of Admission Date of Admission 02/12/18 Identification/Chief Complaint Chief Complaint SEIZURE Source Source: Chart review History of Present Illness History of Present Illness HPI Patient is a 57 year old male who presents with seizure activity TODAy. pt is very confused , mumbling saying 'what is going on" , cannot contribute any history. All history got from ERP. pt was dced here 3 months ago for seizure and non compliance. not sure if he takes keppra at home this time. He was found seizure by family and EMS was called. Pt was noticed another time seizure in ER , lasting 60s. pt never really back to his baseline to talk, kept confused. He did not sustain injury. Oxygen was placed and suction was performed. The patient had an IV in place already. He was given 1 mg of Ativan. Past Medical History Cardiovascular: HTN CENTRAL NERVOUS SYSTEM: Seizure Psych: Other Rheumatologic: Gout Renal/: UTI, Urinary Incontinence, Other Endocrine: Diabetes Past Surgical History Past Surgical History: No pertinent history Family History Family History: Alcohol Abuse, Diabetes Social History ALCOHOL: other Drugs: None Current Medications Current Medications Current Medications Medications (Trade) Dose Ordered Sig/Jacob Start Time Stop Time Status Last Admin Dose Admin Haloperidol Lactate (Haldol Inj) 5 mg 1X ONCE 02/12/18 16:00 02/12/18 16:01 DC 02/12/18 16:00 5 MG Levetiracetam 1000 mg/Dextrose 110 ml @ 440 mls/hr 1X ONCE 02/12/18 12:00 02/12/18 12:14 DC 02/12/18 12:15 440 MLS/HR Levetiracetam 500 mg/Dextrose 105 ml @ 420 mls/hr Q12HR 02/12/18 21:00 UNV Lorazepam (Ativan) 2 mg Q6H PRN 02/12/18 16:00 UNV Ondansetron HCl (Zofran) 4 mg PRN Q8HRS PRN 02/12/18 16:00 02/13/18 15:59 UNV Sodium Chloride 1,000 ml @ 100 mls/hr Q10H 02/12/18 15:55 02/13/18 15:54 UNV Allergies Allergies Allergies Coded Allergies Type Severity Reaction Last Updated Verified No Known Drug Allergies 12/11/16 No ROS Review of System CONSTITUTIONAL: No fever or chills EYES: No recent changes SKIN: No rash or itching CARDIOVASCULAR: No chest pain, syncope, palpitations, or edema RESPIRATORY: No SOB or cough GASTROINTESTINAL: No nausea, vomiting or abdominal pain NEUROLOGICAL: No headaches or weakness ENDOCRINE: No cold or heat intolerance GENITOURINARY: No urgency or frequency of urination MUSCULOSKELETAL: No back pain or joint pain LYMPHATICS: No enlarged lymph nodes PSYCHIATRIC: No anxiety or depression Physical Exam Physical Exam GEN.: No apparent distress. drowsy, not answer questions or follow commands. HEENT: Head is normocephalic, atraumatic NECK: Supple. LUNGS: Clear to auscultation. HEART: RRR, S1, S2 present. Peripheral pulses intact ABDOMEN: Soft, nontender. Positive bowel sounds. EXTREMITIES: Without any cyanosis. NEUROLOGIC: Normal speech, normal tone PSYCHIATRIC: Normal affect, normal mood. SKIN: No ulcerations Vitals Vitals Vital Signs Date Time Temp Pulse Resp B/P (MAP) Pulse Ox O2 Delivery O2 Flow Rate FiO2 02/12/18 14:19 102 93 02/12/18 13:07 19 02/12/18 11:44 100.0 141/96 (111) Room Air 100.0 Labs Labs Laboratory Tests Test 02/12/18 11:50 White Blood Count 6.8 x10^3/uL (4.0-11.0) Red Blood Count 4.52 x10^6/uL (4.30-5.70) Hemoglobin 15.6 g/dL (13.0-17.5) Hematocrit 45.2 % (39.0-53.0) Mean Corpuscular Volume 100 fL (79-100) Mean Corpuscular Hemoglobin 35 pg (25-35) Mean Corpuscular Hemoglobin Concent 35 g/dL (31-37) Red Cell Distribution Width 13.7 % (11.5-14.5) Platelet Count 153 x10^3/uL (140-400) Neutrophils (%) (Auto) 61 % (31-73) Lymphocytes (%) (Auto) 29 % (24-48) Monocytes (%) (Auto) 9 % (0-9) Eosinophils (%) (Auto) 0 % (0-3) Basophils (%) (Auto) 1 % (0-3) Neutrophils # (Auto) 4.2 x10^3uL (1.8-7.7) Lymphocytes # (Auto) 2.0 x10^3/uL (1.0-4.8) Monocytes # (Auto) 0.6 x10^3/uL (0.0-1.1) Eosinophils # (Auto) 0.0 x10^3/uL (0.0-0.7) Basophils # (Auto) 0.0 x10^3/uL (0.0-0.2) Sodium Level 139 mmol/L (136-145) Potassium Level 3.8 mmol/L (3.5-5.1) Chloride Level 99 mmol/L (98-107) Carbon Dioxide Level 14 mmol/L (21-32) Anion Gap 26 (6-14) Blood Urea Nitrogen 26 mg/dL (8-26) Creatinine 1.9 mg/dL (0.7-1.3) Estimated GFR (Cockcroft-Gault) 44.4 Glucose Level 167 mg/dL (70-99) Calcium Level 10.0 mg/dL (8.5-10.1) Magnesium Level 2.4 mg/dL (1.8-2.4) Ethyl Alcohol Level < 10 mg/dL (0-10) Laboratory Tests Test 02/12/18 11:50 White Blood Count 6.8 x10^3/uL (4.0-11.0) Red Blood Count 4.52 x10^6/uL (4.30-5.70) Hemoglobin 15.6 g/dL (13.0-17.5) Hematocrit 45.2 % (39.0-53.0) Mean Corpuscular Volume 100 fL (79-100) Mean Corpuscular Hemoglobin 35 pg (25-35) Mean Corpuscular Hemoglobin Concent 35 g/dL (31-37) Red Cell Distribution Width 13.7 % (11.5-14.5) Platelet Count 153 x10^3/uL (140-400) Neutrophils (%) (Auto) 61 % (31-73) Lymphocytes (%) (Auto) 29 % (24-48) Monocytes (%) (Auto) 9 % (0-9) Eosinophils (%) (Auto) 0 % (0-3) Basophils (%) (Auto) 1 % (0-3) Neutrophils # (Auto) 4.2 x10^3uL (1.8-7.7) Lymphocytes # (Auto) 2.0 x10^3/uL (1.0-4.8) Monocytes # (Auto) 0.6 x10^3/uL (0.0-1.1) Eosinophils # (Auto) 0.0 x10^3/uL (0.0-0.7) Basophils # (Auto) 0.0 x10^3/uL (0.0-0.2) Sodium Level 139 mmol/L (136-145) Potassium Level 3.8 mmol/L (3.5-5.1) Chloride Level 99 mmol/L (98-107) Carbon Dioxide Level 14 mmol/L (21-32) Anion Gap 26 (6-14) Blood Urea Nitrogen 26 mg/dL (8-26) Creatinine 1.9 mg/dL (0.7-1.3) Estimated GFR (Cockcroft-Gault) 44.4 Glucose Level 167 mg/dL (70-99) Calcium Level 10.0 mg/dL (8.5-10.1) Magnesium Level 2.4 mg/dL (1.8-2.4) Ethyl Alcohol Level < 10 mg/dL (0-10) VTE Prophylaxis Ordered VTE Prophylaxis Devices: Yes VTE Pharmacological Prophylaxi: Yes Assessment/Plan Assessment/Plan seizure, recurrent h/o seizure on keppra non compliance KARAN, vasomotor dm2 htn gout metabolic encephalopathy post ictal confusion plan: neuro consult got keppra 1 g x1 in ER, check keppra level npo ivf NS 150cc/h, cont keppra 500mg iv bid for now ativan prn neuro check q4h head ct neg need verify home meds PTOT, SW dvt, gi ppx ssi check LA, DRUG TOX, CK[facility] MIYA LOPEZ MD Feb 12, 2018 16:07
[2018-02-12] MEDS ORDERED: DEXTROSE 50% 25 GM / 50ML DISP.SYRIN. IV PRN (16:15)
[2018-02-12 16:29] LABS: BILIRUBIN,URINE NEGATIVE (NEG); CLARITY,URINE CLEAR; COLOR,URINE YELLOW; NITRITE,URINE POSITIVE (NEG); PH,URINE 5.5; PROTEIN,URINE >=300 mg/dL (NEG-TRACE); UROBILINOGEN,URINE 0.2 mg/dL (0.2 mg/dL)
[2018-02-12 16:34] LABS: BACTERIA,URINE MANY /HPF (0-FEW); SQUAMOUS EPITHELIAL CELL,UR MOD /LPF; WBC,URINE 20-40 /HPF (0-4)
[2018-02-12 16:36] LABS: AMPHETAMINE/METHAMPHETAMINE NEG (NEG); BARBITURATES NEG (NEG); BENZODIAZEPINES NEG (NEG); CANNABINOIDS POS (NEG); COCAINE NEG (NEG); METHADONE NEG (NEG); OPIATES NEG (NEG); PHENCYCLIDINE NEG (NEG)
[2018-02-12] MEDS: IV NORMAL SALINE 1000ML BAG 1,000 ML IV SCH ×3 (16:36→22:40)
[2018-02-12] MEDS: INSULIN LISPRO 300 UNITS/3 ML INSULN.PEN. SQ SCH (17:00)
[2018-02-12] MEDS: FAMOTIDINE 20 MG/2 ML VIAL IVP SCH (20:12)
[2018-02-12] MEDS: levETIRAcetam 500 MG in IV DEXTROSE 5% 100ML 100 ML IV SCH (20:13)
[2018-02-12] MEDS: ENOXAPARIN 40 MG/0.4 ML SYRINGE. SQ SCH (20:13)
--- NOTE | 2018-02-12 20:56 | PDOC2 ---
NEUROLOGY CONSULT Date of Admission Date of Admission DATE: 02/12/18 TIME: 20:55 Full Report Dictated Patient is a 57-year-old man with a known generalized tonic-clonic seizure disorder. He was seen by Dr. Manning in November 2017. Investigation at that time was not revealing. He was prescribed levetiracetam but it's not clear that he has been compliant. He presented on this occasion with breakthrough seizure. He has been given some intravenous levetiracetam which will be continued. At the present time he is postictal and encephalopathic. The examination was nonfocal. Neurology will follow up. Current Medications Current Medications Current Medications Sodium Chloride 1,000 ml @ 1,000 mls/hr 1X ONCE IV Last administered on at 12:01; Start 02/12/18 at 12:00; Stop 02/12/18 at 12:59; Status DC Lorazepam (Ativan) 1 mg 1X ONCE IV Last administered on 02/12/18at 12:00; Start 02/12/18 at 12:00; Stop 02/12/18 at 12:02; Status DC Levetiracetam 1000 mg/Dextrose 110 ml @ 440 mls/hr 1X ONCE IV Last administered on 02/12/18at 12:15; Start 02/12/18 at 12:00; Stop 02/12/18 at 12:14; Status DC Lorazepam (Ativan) 2 mg 1X ONCE IV Last administered on 02/12/18at 12:53; Start 02/12/18 at 13:00; Stop 02/12/18 at 13:01; Status DC Lorazepam (Ativan) 2 mg 1X ONCE IV Last administered on 02/12/18at 13:37; Start 02/12/18 at 13:45; Stop 02/12/18 at 13:46; Status DC Haloperidol Lactate (Haldol Inj) 5 mg 1X ONCE IVP Last administered on at 16:00; Start 02/12/18 at 16:00; Stop 02/12/18 at 16:01; Status DC Lorazepam (Ativan) 1 mg 1X ONCE IV Last administered on 02/12/18at 16:00; Start 02/12/18 at 16:00; Stop 02/12/18 at 16:01; Status DC Ondansetron HCl (Zofran) 4 mg PRN Q8HRS PRN IV NAUSEA/VOMITING; Start 02/12/18 at 16:00; Stop 02/13/18 at 15:59 Sodium Chloride 1,000 ml @ 100 mls/hr Q10H IV Last administered on 02/12/18at 16 :36; Start 02/12/18 at 15:55; Stop 02/13/18 at 15:54 Lorazepam (Ativan) 2 mg PRN Q6HRS PRN IV seizure activity Last administered on 02/12/18at 16:39; Start 02/12/18 at 16:00 Levetiracetam 500 mg/Dextrose 105 ml @ 420 mls/hr Q12HR IV Last administered on 02/12/18at 20:13; Start 02/12/18 at 21:00 Levetiracetam 500 mg/Dextrose 105 ml @ 420 mls/hr Q12HR IV ; Start 02/12/18 at 21:00; Status UNV Lorazepam (Ativan) 2 mg PRN Q4HRS PRN IV ANXIETY / AGITATION; Start 02/12/18 at 16:00 Acetaminophen (Tylenol) 650 mg PRN Q6HRS PRN PO FEVER/HEADACHE; Start 02/12/18 at 16:00 Ondansetron HCl (Zofran) 4 mg PRN Q6HRS PRN IV NAUSEA/VOMITING 1ST CHOICE; Start 02/12/18 at 16:00 Morphine Sulfate (Morphine Sulfate) 2 mg PRN Q2HR PRN IV MODERATE TO SEVERE PAIN; Start 02/12/18 at 16:00 Tramadol HCl (Ultram) 50 mg PRN Q6HRS PRN PO MILD TO MODERATE PAIN; Start at 16:00 Docusate Sodium (Colace) 100 mg PRN DAILY PRN PO HARD STOOLS; Start 02/12/18 at 16:00 Sodium Chloride 1,000 ml @ 150 mls/hr Q6H40M IV Last administered on 02/12/18at 17:51; Start 02/12/18 at 16:00 Famotidine (Pepcid Vial) 20 mg QHS IVP Last administered on 02/12/18at 20:12; Start 02/12/18 at 21:00 Enoxaparin Sodium (Lovenox 40mg Syringe) 40 mg Q24H SQ Last administered on 02/12at 20:13; Start 02/12/18 at 21:00 Insulin Human Lispro (HumaLOG) 0-7 UNITS TIDWMEALS SQ ; Start 02/12/18 at 17:00 Dextrose (Dextrose 50%-Water Syringe) 12.5 gm PRN Q15MIN PRN IV SEE COMMENTS; Start 02/12/18 at 16:15 Active Scripts Active Keppra (Levetiracetam) 500 Mg Tablet 1 Tab PO BID Cipro (Ciprofloxacin Hcl) 500 Mg Tablet 1 Tab PO BID Allergies Allergies: Coded Allergies: No Known Drug Allergies (Unverified , 12/11/16) Vitals VITALS Vital Signs Date Time Temp Pulse Resp B/P (MAP) Pulse Ox O2 Delivery O2 Flow Rate FiO2 02/12/18 17:39 86 02/12/18 16:39 19 96 02/12/18 11:44 100.0 141/96 (111) Room Air 100.0 Labs Labs Laboratory Tests Test 02/12/18 11:50 02/12/18 16:22 02/12/18 17:35 02/12/18 20:42 White Blood Count 6.8 x10^3/uL (4.0-11.0) Red Blood Count 4.52 x10^6/uL (4.30-5.70) Hemoglobin 15.6 g/dL (13.0-17.5) Hematocrit 45.2 % (39.0-53.0) Mean Corpuscular Volume 100 fL (79-100) Mean Corpuscular Hemoglobin 35 pg (25-35) Mean Corpuscular Hemoglobin Concent 35 g/dL (31-37) Red Cell Distribution Width 13.7 % (11.5-14.5) Platelet Count 153 x10^3/uL (140-400) Neutrophils (%) (Auto) 61 % (31-73) Lymphocytes (%) (Auto) 29 % (24-48) Monocytes (%) (Auto) 9 % (0-9) Eosinophils (%) (Auto) 0 % (0-3) Basophils (%) (Auto) 1 % (0-3) Neutrophils # (Auto) 4.2 x10^3uL (1.8-7.7) Lymphocytes # (Auto) 2.0 x10^3/uL (1.0-4.8) Monocytes # (Auto) 0.6 x10^3/uL (0.0-1.1) Eosinophils # (Auto) 0.0 x10^3/uL (0.0-0.7) Basophils # (Auto) 0.0 x10^3/uL (0.0-0.2) Sodium Level 139 mmol/L (136-145) Potassium Level 3.8 mmol/L (3.5-5.1) Chloride Level 99 mmol/L (98-107) Carbon Dioxide Level 14 mmol/L (21-32) Anion Gap 26 (6-14) Blood Urea Nitrogen 26 mg/dL (8-26) Creatinine 1.9 mg/dL (0.7-1.3) Estimated GFR (Cockcroft-Gault) 44.4 Glucose Level 167 mg/dL (70-99) Calcium Level 10.0 mg/dL (8.5-10.1) Magnesium Level 2.4 mg/dL (1.8-2.4) Creatine Kinase 133 U/L (39-308) Creatine Kinase MB (Mass) 1.7 ng/mL (0.0-3.6) Creatine Kinase MB Relative Index 1.3 % (0-4) Ethyl Alcohol Level < 10 mg/dL (0-10) Urine Collection Type Unknown Urine Color Yellow Urine Clarity Clear Urine pH 5.5 Urine Specific Ennice 1.015 Urine Protein >=300 mg/dL (NEG-TRACE) Urine Glucose (UA) Negative mg/dL (NEG) Urine Ketones (Stick) Negative mg/dL (NEG) Urine Blood Small (NEG) Urine Nitrite Positive (NEG) Urine Bilirubin Negative (NEG) Urine Urobilinogen Dipstick 0.2 mg/dL (0.2 mg/dL) Urine Leukocyte Esterase Moderate (NEG) Urine RBC 1-2 /HPF (0-2) Urine WBC 20-40 /HPF (0-4) Urine Squamous Epithelial Cells Mod /LPF Urine Bacteria Many /HPF (0-FEW) Urine Opiates Screen Neg (NEG) Urine Methadone Screen Neg (NEG) Urine Barbiturates Neg (NEG) Urine Phencyclidine Screen Neg (NEG) Urine Amphetamine/Methamphetamine Neg (NEG) Urine Benzodiazepines Screen Neg (NEG) Urine Cocaine Screen Neg (NEG) Urine Cannabinoids Screen Pos (NEG) Urine Ethyl Alcohol Neg (NEG) Lactic Acid Level 1.4 mmol/L (0.4-2.0) Glucose (Fingerstick) 90 mg/dL (70-99) Laboratory Tests Test 02/12/18 11:50 02/12/18 16:22 02/12/18 17:35 02/12/18 20:42 White Blood Count 6.8 x10^3/uL (4.0-11.0) Red Blood Count 4.52 x10^6/uL (4.30-5.70) Hemoglobin 15.6 g/dL (13.0-17.5) Hematocrit 45.2 % (39.0-53.0) Mean Corpuscular Volume 100 fL (79-100) Mean Corpuscular Hemoglobin 35 pg (25-35) Mean Corpuscular Hemoglobin Concent 35 g/dL (31-37) Red Cell Distribution Width 13.7 % (11.5-14.5) Platelet Count 153 x10^3/uL (140-400) Neutrophils (%) (Auto) 61 % (31-73) Lymphocytes (%) (Auto) 29 % (24-48) Monocytes (%) (Auto) 9 % (0-9) Eosinophils (%) (Auto) 0 % (0-3) Basophils (%) (Auto) 1 % (0-3) Neutrophils # (Auto) 4.2 x10^3uL (1.8-7.7) Lymphocytes # (Auto) 2.0 x10^3/uL (1.0-4.8) Monocytes # (Auto) 0.6 x10^3/uL (0.0-1.1) Eosinophils # (Auto) 0.0 x10^3/uL (0.0-0.7) Basophils # (Auto) 0.0 x10^3/uL (0.0-0.2) Sodium Level 139 mmol/L (136-145) Potassium Level 3.8 mmol/L (3.5-5.1) Chloride Level 99 mmol/L (98-107) Carbon Dioxide Level 14 mmol/L (21-32) Anion Gap 26 (6-14) Blood Urea Nitrogen 26 mg/dL (8-26) Creatinine 1.9 mg/dL (0.7-1.3) Estimated GFR (Cockcroft-Gault) 44.4 Glucose Level 167 mg/dL (70-99) Calcium Level 10.0 mg/dL (8.5-10.1) Magnesium Level 2.4 mg/dL (1.8-2.4) Creatine Kinase 133 U/L (39-308) Creatine Kinase MB (Mass) 1.7 ng/mL (0.0-3.6) Creatine Kinase MB Relative Index 1.3 % (0-4) Ethyl Alcohol Level < 10 mg/dL (0-10) Urine Collection Type Unknown Urine Color Yellow Urine Clarity Clear Urine pH 5.5 Urine Specific Ennice 1.015 Urine Protein >=300 mg/dL (NEG-TRACE) Urine Glucose (UA) Negative mg/dL (NEG) Urine Ketones (Stick) Negative mg/dL (NEG) Urine Blood Small (NEG) Urine Nitrite Positive (NEG) Urine Bilirubin Negative (NEG) Urine Urobilinogen Dipstick 0.2 mg/dL (0.2 mg/dL) Urine Leukocyte Esterase Moderate (NEG) Urine RBC 1-2 /HPF (0-2) Urine WBC 20-40 /HPF (0-4) Urine Squamous Epithelial Cells Mod /LPF Urine Bacteria Many /HPF (0-FEW) Urine Opiates Screen Neg (NEG) Urine Methadone Screen Neg (NEG) Urine Barbiturates Neg (NEG) Urine Phencyclidine Screen Neg (NEG) Urine Amphetamine/Methamphetamine Neg (NEG) Urine Benzodiazepines Screen Neg (NEG) Urine Cocaine Screen Neg (NEG) Urine Cannabinoids Screen Pos (NEG) Urine Ethyl Alcohol Neg (NEG) Lactic Acid Level 1.4 mmol/L (0.4-2.0) Glucose (Fingerstick) 90 mg/dL (70-99) ALLEGRA ROSE MD Feb 12, 2018 20:56
[2018-02-12] MEDS ORDERED: levETIRAcetam 500 MG in IV DEXTROSE 5% 100ML 100 ML IV SCH (21:00)
--- NOTE | 2018-02-12 23:13 | CONS ---
DATE OF CONSULTATION: 02/12/2018 REFERRING PHYSICIAN: Dr. Renteria. REASON FOR CONSULTATION: Seizure and postictal encephalopathy. HISTORY OF PRESENT ILLNESS: The patient is a 57-year-old man who presented to the Emergency Room by EMS. He was found by his family having seizure and EMS was activated. He had another seizure in the Emergency Room lasting about 60 seconds. He did not sustain any injury. He was given 1 mg of intravenous Ativan. He was seen at [facility] in November 2017 for seizure activity and was seen by Dr. Manning and started on Keppra. There is a history of medicine noncompliance, so it is not clear if he was actually taking his medications. He is not able to provide any meaningful history at the time of my evaluation because he was still in a postictal state. PAST MEDICAL HISTORY: 1. Hypertension. 2. Seizure. 3. Gout. 4. History of urinary tract infection. 5. Diabetes. ALLERGIES: No known allergies to drugs. MEDICATIONS PRIOR TO ADMISSION: He was supposed to be on levetiracetam 500 mg twice per day and Cipro 500 mg twice per day for 5 days. FAMILY HISTORY: Alcohol abuse and diabetes. SOCIAL HISTORY: According to records, he does not drink alcohol or use recreational drugs. REVIEW OF SYSTEMS: Not obtainable as there is no family member, and the patient is not able to respond verbally or follow commands. PHYSICAL EXAMINATION: VITAL SIGNS: The blood pressure was 141/96, pulse 86, respirations 19, temperature 100 degrees Fahrenheit orally. Oximetry was 96% on room air. His weight was 240 pounds, height 70 inches with a calculated body mass index of 34.4. GENERAL: He was semi-awake and agitated. He was moving around in the bed, grabbing at his sheets and IV tubing and the nurse's arm. NEUROLOGIC: He did not follow commands. He did not open his eyes to command or look up to command. When the eyes were held open, they were conjugate. He did not respond to visual threat or loud clap. Oculocephalic reflex was intact. Corneal reflex was intact. Pupils were 4 mm and reacted. He was not able to cooperate for funduscopic exam. Face appeared symmetric. Sharp sensation bilaterally did not provoke much of a response in the face, perhaps a little bit of aversion. The neck was not rigid. Muscle bulk was symmetric throughout. Tone was not spastic or flaccid. He was not able to participate in formal power testing, but his movements were symmetric, powerful and fairly well-coordinated. Reflexes were 2/4 and symmetric in the upper and lower extremities. Toes were not upgoing. He did not have ankle reflexes. Coordination testing was not formally possible, but movements were well-coordinated. Sensory exam was intact to nail bed pressure via grimace and withdrawal bilaterally. Gait was not testable. NECK: Auscultation of the carotid arteries did not reveal a bruit. HEART: Rhythm is regular, without a murmur. EXTREMITIES: Peripheral pulses were symmetric in the hands. It was more difficult to palpate his pulses in his feet. There was no edema or cyanosis. REVIEW OF LABORATORY DATA: CBC revealed a normal white blood cell count, hemoglobin, hematocrit and platelet count. Chemistries revealed normal sodium, potassium and chloride, but CO2 was low at 14. BUN was normal at 26, creatinine elevated to 1.9 with a calculated GFR of 44.4. Glucose was elevated to 167. Calcium and magnesium were normal. CPK was 133. Lactic acid was 1.4. Urine drug screen was positive for cannabinoids. Ethyl alcohol was not detected in the urine. Urinalysis revealed greater than 300 mg/dL of protein, small amount of blood, positive nitrite, moderate leukocyte esterase, 1-2 red blood cells, 20-40 white blood cells, moderate squamous epithelial cells and many bacteria. A CT scan of the head was performed this afternoon revealing no acute intracranial process or any new process from the study of 11/22/2017. IMPRESSION: The patient is a 57-year-old man with a generalized tonic-clonic seizure disorder. He does have a history of noncompliance and it is not clear if he was actually taking his Keppra. He presented with recurrent seizure on this occasion and has not returned to his baseline state. At this point, he still remains postictal in an agitated state. I am relieved that there is nothing focal on his examination and CAT scan of the head did not reveal evidence of an acute hemorrhage. RECOMMENDATIONS: We will continue with the levetiracetam 500 mg IV every 12 hours. If there is further breakthrough seizure, we could consider increasing the dosage. Once he wakes up and takes oral, we can switch this over to oral. Once he is no longer postictal, we can try to determine if he has been compliant with his medicines or these are breakthrough seizures due to not taking his anticonvulsant. ALLEGRA ROSE MD DR: ANTONIO/abner JOB#: [id number] / [id number] SILVER Nazario MD, FERILYN MD
[2018-02-12 23:43] VITALS: BP 214/112
[2018-02-13] MEDS ORDERED: LABETALOL 20 MG/4 ML DISP.SYRIN. IVP PRN (00:30)
[2018-02-13] MEDS: IV NORMAL SALINE 1000ML BAG 1,000 ML IV SCH ×5 (01:55→18:40)
[2018-02-13 03:30] VITALS: BP 141/79
[2018-02-13 07:00] VITALS: BP 158/95
[2018-02-13] MEDS: INSULIN LISPRO 300 UNITS/3 ML INSULN.PEN. SQ SCH ×3 (08:00→17:00)
[2018-02-13 08:42] LABS: BASO % 1 % (0-3); EOS % 0 % (0-3); HEMATOCRIT 40.6 % (39.0-53.0); HEMOGLOBIN 14.2 g/dL (13.0-17.5); LYMPH # 1.2 x10^3/uL (1.0-4.8); LYMPH % 22 % (24-48); MEAN CORPUSCULAR HEMOGLOBIN 34 pg (25-35); MEAN CORPUSCULAR HGB CONC 35 g/dL (31-37); MEAN CORPUSCULAR VOLUME 97 fL (79-100); MONO # 0.5 x10^3/uL (0.0-1.1); MONO % 9 % (0-9); NEUT # 3.7 x10^3uL (1.8-7.7); NEUT % 68 % (31-73); PLATELET COUNT 133 x10^3/uL (140-400); RED BLOOD COUNT 4.17 x10^6/uL (4.30-5.70); RED CELL DISTRIBUTION WIDTH 13.8 % (11.5-14.5); WHITE BLOOD COUNT 5.4 x10^3/uL (4.0-11.0)
[2018-02-13 09:01] LABS: ALBUMIN 3.2 g/dL (3.4-5.0); ALBUMIN/GLOBULIN RATIO 0.7 (1.0-1.7); CALCIUM 8.8 mg/dL (8.5-10.1); CREATININE 1.6 mg/dL (0.7-1.3); GFR 54.2; POTASSIUM 3.7 mmol/L (3.5-5.1); TOTAL BILIRUBIN 0.8 mg/dL (0.2-1.0); TOTAL PROTEIN 7.5 g/dL (6.4-8.2)
[2018-02-13] MEDS: levETIRAcetam 500 MG in IV DEXTROSE 5% 100ML 100 ML IV SCH (09:05)
--- NOTE | 2018-02-13 10:48 | PDOC ---
PROGRESS NOTES Assessment Problems Medical Problems: (1) Seizure Status: Acute Epilepsy, I last saw him for this during his November hospital stay Post-ictal state has resolved. Psychiatric disorder Prior medication noncompliance Plan Continue levetiracetam, switch to oral. Placement, last time he was supposed to go to long term but apparently this was not accomplished Subjective No complaints Objective Vital Signs Date Time Temp Pulse Resp B/P (MAP) Pulse Ox O2 Delivery O2 Flow Rate FiO2 02/13/18 08:00 Room Air 02/13/18 07:00 98.9 67 17 158/95 (116) 98.9 02/12/18 23:43 96 Intake and Output 02/13/18 07:00 Intake Total 1260 ml Output Total 760 ml Balance 500 ml Intake IV Total 1260 ml Output Urine Total 760 ml # Bowel Movements 2 PHYSICAL EXAM Alert. Oriented to "hospital" and person. PERRL. EOMI. CN: no focal findings. Muscle tone: normal. Muscle strength: 3-4/5 DTR: 1+ Plantar reflex: Flexor Gait: not examined in bed. Sensory exam: no abnormal findings. No cerebellar signs elicited. Review of Relevant I have reviewed the following items olena (where applicable) has been applied. Labs Laboratory Tests Test 02/12/18 11:50 02/12/18 16:22 02/12/18 17:35 02/12/18 20:42 White Blood Count 6.8 x10^3/uL (4.0-11.0) Red Blood Count 4.52 x10^6/uL (4.30-5.70) Hemoglobin 15.6 g/dL (13.0-17.5) Hematocrit 45.2 % (39.0-53.0) Mean Corpuscular Volume 100 fL (79-100) Mean Corpuscular Hemoglobin 35 pg (25-35) Mean Corpuscular Hemoglobin Concent 35 g/dL (31-37) Red Cell Distribution Width 13.7 % (11.5-14.5) Platelet Count 153 x10^3/uL (140-400) Neutrophils (%) (Auto) 61 % (31-73) Lymphocytes (%) (Auto) 29 % (24-48) Monocytes (%) (Auto) 9 % (0-9) Eosinophils (%) (Auto) 0 % (0-3) Basophils (%) (Auto) 1 % (0-3) Neutrophils # (Auto) 4.2 x10^3uL (1.8-7.7) Lymphocytes # (Auto) 2.0 x10^3/uL (1.0-4.8) Monocytes # (Auto) 0.6 x10^3/uL (0.0-1.1) Eosinophils # (Auto) 0.0 x10^3/uL (0.0-0.7) Basophils # (Auto) 0.0 x10^3/uL (0.0-0.2) Sodium Level 139 mmol/L (136-145) Potassium Level 3.8 mmol/L (3.5-5.1) Chloride Level 99 mmol/L (98-107) Carbon Dioxide Level 14 mmol/L (21-32) Anion Gap 26 (6-14) Blood Urea Nitrogen 26 mg/dL (8-26) Creatinine 1.9 mg/dL (0.7-1.3) Estimated GFR (Cockcroft-Gault) 44.4 Glucose Level 167 mg/dL (70-99) Calcium Level 10.0 mg/dL (8.5-10.1) Magnesium Level 2.4 mg/dL (1.8-2.4) Creatine Kinase 133 U/L (39-308) Creatine Kinase MB (Mass) 1.7 ng/mL (0.0-3.6) Creatine Kinase MB Relative Index 1.3 % (0-4) Ethyl Alcohol Level < 10 mg/dL (0-10) Urine Collection Type Unknown Urine Color Yellow Urine Clarity Clear Urine pH 5.5 Urine Specific [place] 1.015 Urine Protein >=300 mg/dL (NEG-TRACE) Urine Glucose (UA) Negative mg/dL (NEG) Urine Ketones (Stick) Negative mg/dL (NEG) Urine Blood Small (NEG) Urine Nitrite Positive (NEG) Urine Bilirubin Negative (NEG) Urine Urobilinogen Dipstick 0.2 mg/dL (0.2 mg/dL) Urine Leukocyte Esterase Moderate (NEG) Urine RBC 1-2 /HPF (0-2) Urine WBC 20-40 /HPF (0-4) Urine Squamous Epithelial Cells Mod /LPF Urine Bacteria Many /HPF (0-FEW) Urine Opiates Screen Neg (NEG) Urine Methadone Screen Neg (NEG) Urine Barbiturates Neg (NEG) Urine Phencyclidine Screen Neg (NEG) Urine Amphetamine/Methamphetamine Neg (NEG) Urine Benzodiazepines Screen Neg (NEG) Urine Cocaine Screen Neg (NEG) Urine Cannabinoids Screen Pos (NEG) Urine Ethyl Alcohol Neg (NEG) Lactic Acid Level 1.4 mmol/L (0.4-2.0) Glucose (Fingerstick) 90 mg/dL (70-99) Test 02/13/18 06:33 02/13/18 08:15 Glucose (Fingerstick) 86 mg/dL (70-99) White Blood Count 5.4 x10^3/uL (4.0-11.0) Red Blood Count 4.17 x10^6/uL (4.30-5.70) Hemoglobin 14.2 g/dL (13.0-17.5) Hematocrit 40.6 % (39.0-53.0) Mean Corpuscular Volume 97 fL (79-100) Mean Corpuscular Hemoglobin 34 pg (25-35) Mean Corpuscular Hemoglobin Concent 35 g/dL (31-37) Red Cell Distribution Width 13.8 % (11.5-14.5) Platelet Count 133 x10^3/uL (140-400) Neutrophils (%) (Auto) 68 % (31-73) Lymphocytes (%) (Auto) 22 % (24-48) Monocytes (%) (Auto) 9 % (0-9) Eosinophils (%) (Auto) 0 % (0-3) Basophils (%) (Auto) 1 % (0-3) Neutrophils # (Auto) 3.7 x10^3uL (1.8-7.7) Lymphocytes # (Auto) 1.2 x10^3/uL (1.0-4.8) Monocytes # (Auto) 0.5 x10^3/uL (0.0-1.1) Eosinophils # (Auto) 0.0 x10^3/uL (0.0-0.7) Basophils # (Auto) 0.0 x10^3/uL (0.0-0.2) Sodium Level 141 mmol/L (136-145) Potassium Level 3.7 mmol/L (3.5-5.1) Chloride Level 106 mmol/L (98-107) Carbon Dioxide Level 25 mmol/L (21-32) Anion Gap 10 (6-14) Blood Urea Nitrogen 17 mg/dL (8-26) Creatinine 1.6 mg/dL (0.7-1.3) Estimated GFR (Cockcroft-Gault) 54.2 BUN/Creatinine Ratio 11 (6-20) Glucose Level 98 mg/dL (70-99) Calcium Level 8.8 mg/dL (8.5-10.1) Total Bilirubin 0.8 mg/dL (0.2-1.0) Aspartate Amino Transf (AST/SGOT) 32 U/L (15-37) Alanine Aminotransferase (ALT/SGPT) 13 U/L (16-63) Alkaline Phosphatase 54 U/L (46-116) Total Protein 7.5 g/dL (6.4-8.2) Albumin 3.2 g/dL (3.4-5.0) Albumin/Globulin Ratio 0.7 (1.0-1.7) Laboratory Tests Test 02/12/18 11:50 02/12/18 16:22 02/12/18 17:35 02/12/18 20:42 White Blood Count 6.8 x10^3/uL (4.0-11.0) Red Blood Count 4.52 x10^6/uL (4.30-5.70) Hemoglobin 15.6 g/dL (13.0-17.5) Hematocrit 45.2 % (39.0-53.0) Mean Corpuscular Volume 100 fL (79-100) Mean Corpuscular Hemoglobin 35 pg (25-35) Mean Corpuscular Hemoglobin Concent 35 g/dL (31-37) Red Cell Distribution Width 13.7 % (11.5-14.5) Platelet Count 153 x10^3/uL (140-400) Neutrophils (%) (Auto) 61 % (31-73) Lymphocytes (%) (Auto) 29 % (24-48) Monocytes (%) (Auto) 9 % (0-9) Eosinophils (%) (Auto) 0 % (0-3) Basophils (%) (Auto) 1 % (0-3) Neutrophils # (Auto) 4.2 x10^3uL (1.8-7.7) Lymphocytes # (Auto) 2.0 x10^3/uL (1.0-4.8) Monocytes # (Auto) 0.6 x10^3/uL (0.0-1.1) Eosinophils # (Auto) 0.0 x10^3/uL (0.0-0.7) Basophils # (Auto) 0.0 x10^3/uL (0.0-0.2) Sodium Level 139 mmol/L (136-145) Potassium Level 3.8 mmol/L (3.5-5.1) Chloride Level 99 mmol/L (98-107) Carbon Dioxide Level 14 mmol/L (21-32) Anion Gap 26 (6-14) Blood Urea Nitrogen 26 mg/dL (8-26) Creatinine 1.9 mg/dL (0.7-1.3) Estimated GFR (Cockcroft-Gault) 44.4 Glucose Level 167 mg/dL (70-99) Calcium Level 10.0 mg/dL (8.5-10.1) Magnesium Level 2.4 mg/dL (1.8-2.4) Creatine Kinase 133 U/L (39-308) Creatine Kinase MB (Mass) 1.7 ng/mL (0.0-3.6) Creatine Kinase MB Relative Index 1.3 % (0-4) Ethyl Alcohol Level < 10 mg/dL (0-10) Urine Collection Type Unknown Urine Color Yellow Urine Clarity Clear Urine pH 5.5 Urine Specific [place] 1.015 Urine Protein >=300 mg/dL (NEG-TRACE) Urine Glucose (UA) Negative mg/dL (NEG) Urine Ketones (Stick) Negative mg/dL (NEG) Urine Blood Small (NEG) Urine Nitrite Positive (NEG) Urine Bilirubin Negative (NEG) Urine Urobilinogen Dipstick 0.2 mg/dL (0.2 mg/dL) Urine Leukocyte Esterase Moderate (NEG) Urine RBC 1-2 /HPF (0-2) Urine WBC 20-40 /HPF (0-4) Urine Squamous Epithelial Cells Mod /LPF Urine Bacteria Many /HPF (0-FEW) Urine Opiates Screen Neg (NEG) Urine Methadone Screen Neg (NEG) Urine Barbiturates Neg (NEG) Urine Phencyclidine Screen Neg (NEG) Urine Amphetamine/Methamphetamine Neg (NEG) Urine Benzodiazepines Screen Neg (NEG) Urine Cocaine Screen Neg (NEG) Urine Cannabinoids Screen Pos (NEG) Urine Ethyl Alcohol Neg (NEG) Lactic Acid Level 1.4 mmol/L (0.4-2.0) Glucose (Fingerstick) 90 mg/dL (70-99) Test 02/13/18 06:33 02/13/18 08:15 Glucose (Fingerstick) 86 mg/dL (70-99) White Blood Count 5.4 x10^3/uL (4.0-11.0) Red Blood Count 4.17 x10^6/uL (4.30-5.70) Hemoglobin 14.2 g/dL (13.0-17.5) Hematocrit 40.6 % (39.0-53.0) Mean Corpuscular Volume 97 fL (79-100) Mean Corpuscular Hemoglobin 34 pg (25-35) Mean Corpuscular Hemoglobin Concent 35 g/dL (31-37) Red Cell Distribution Width 13.8 % (11.5-14.5) Platelet Count 133 x10^3/uL (140-400) Neutrophils (%) (Auto) 68 % (31-73) Lymphocytes (%) (Auto) 22 % (24-48) Monocytes (%) (Auto) 9 % (0-9) Eosinophils (%) (Auto) 0 % (0-3) Basophils (%) (Auto) 1 % (0-3) Neutrophils # (Auto) 3.7 x10^3uL (1.8-7.7) Lymphocytes # (Auto) 1.2 x10^3/uL (1.0-4.8) Monocytes # (Auto) 0.5 x10^3/uL (0.0-1.1) Eosinophils # (Auto) 0.0 x10^3/uL (0.0-0.7) Basophils # (Auto) 0.0 x10^3/uL (0.0-0.2) Sodium Level 141 mmol/L (136-145) Potassium Level 3.7 mmol/L (3.5-5.1) Chloride Level 106 mmol/L (98-107) Carbon Dioxide Level 25 mmol/L (21-32) Anion Gap 10 (6-14) Blood Urea Nitrogen 17 mg/dL (8-26) Creatinine 1.6 mg/dL (0.7-1.3) Estimated GFR (Cockcroft-Gault) 54.2 BUN/Creatinine Ratio 11 (6-20) Glucose Level 98 mg/dL (70-99) Calcium Level 8.8 mg/dL (8.5-10.1) Total Bilirubin 0.8 mg/dL (0.2-1.0) Aspartate Amino Transf (AST/SGOT) 32 U/L (15-37) Alanine Aminotransferase (ALT/SGPT) 13 U/L (16-63) Alkaline Phosphatase 54 U/L (46-116) Total Protein 7.5 g/dL (6.4-8.2) Albumin 3.2 g/dL (3.4-5.0) Albumin/Globulin Ratio 0.7 (1.0-1.7) Medications Current Medications Sodium Chloride 1,000 ml @ 1,000 mls/hr 1X ONCE IV Last administered on at 12:01; Start 02/12/18 at 12:00; Stop 02/12/18 at 12:59; Status DC Lorazepam (Ativan) 1 mg 1X ONCE IV Last administered on 02/12/18at 12:00; Start 02/12/18 at 12:00; Stop 02/12/18 at 12:02; Status DC Levetiracetam 1000 mg/Dextrose 110 ml @ 440 mls/hr 1X ONCE IV Last administered on 02/12/18at 12:15; Start 02/12/18 at 12:00; Stop 02/12/18 at 12:14; Status DC Lorazepam (Ativan) 2 mg 1X ONCE IV Last administered on 02/12/18at 12:53; Start 02/12/18 at 13:00; Stop 02/12/18 at 13:01; Status DC Lorazepam (Ativan) 2 mg 1X ONCE IV Last administered on 02/12/18at 13:37; Start 02/12/18 at 13:45; Stop 02/12/18 at 13:46; Status DC Haloperidol Lactate (Haldol Inj) 5 mg 1X ONCE IVP Last administered on at 16:00; Start 02/12/18 at 16:00; Stop 02/12/18 at 16:01; Status DC Lorazepam (Ativan) 1 mg 1X ONCE IV Last administered on 02/12/18at 16:00; Start 02/12/18 at 16:00; Stop 02/12/18 at 16:01; Status DC Ondansetron HCl (Zofran) 4 mg PRN Q8HRS PRN IV NAUSEA/VOMITING; Start 02/12/18 at 16:00; Stop 02/13/18 at 15:59 Sodium Chloride 1,000 ml @ 100 mls/hr Q10H IV Last administered on 02/12/18at 16 :36; Start 02/12/18 at 15:55; Stop 02/13/18 at 15:54 Lorazepam (Ativan) 2 mg PRN Q6HRS PRN IV seizure activity Last administered on 02/12/18at 16:39; Start 02/12/18 at 16:00 Levetiracetam 500 mg/Dextrose 105 ml @ 420 mls/hr Q12HR IV Last administered on 02/13/18at 09:05; Start 02/12/18 at 21:00 Levetiracetam 500 mg/Dextrose 105 ml @ 420 mls/hr Q12HR IV ; Start 02/12/18 at 21:00; Status UNV Lorazepam (Ativan) 2 mg PRN Q4HRS PRN IV ANXIETY / AGITATION; Start 02/12/18 at 16:00 Acetaminophen (Tylenol) 650 mg PRN Q6HRS PRN PO FEVER/HEADACHE; Start 02/12/18 at 16:00 Ondansetron HCl (Zofran) 4 mg PRN Q6HRS PRN IV NAUSEA/VOMITING 1ST CHOICE; Start 02/12/18 at 16:00 Morphine Sulfate (Morphine Sulfate) 2 mg PRN Q2HR PRN IV MODERATE TO SEVERE PAIN; Start 02/12/18 at 16:00 Tramadol HCl (Ultram) 50 mg PRN Q6HRS PRN PO MILD TO MODERATE PAIN; Start at 16:00 Docusate Sodium (Colace) 100 mg PRN DAILY PRN PO HARD STOOLS; Start 02/12/18 at 16:00 Sodium Chloride 1,000 ml @ 150 mls/hr Q6H40M IV Last administered on 02/13/18at 09:04; Start 02/12/18 at 16:00 Famotidine (Pepcid Vial) 20 mg QHS IVP Last administered on 02/12/18at 20:12; Start 02/12/18 at 21:00 Enoxaparin Sodium (Lovenox 40mg Syringe) 40 mg Q24H SQ Last administered on 02/12at 20:13; Start 02/12/18 at 21:00 Insulin Human Lispro (HumaLOG) 0-7 UNITS TIDWMEALS SQ ; Start 02/12/18 at 17:00 Dextrose (Dextrose 50%-Water Syringe) 12.5 gm PRN Q15MIN PRN IV SEE COMMENTS; Start 02/12/18 at 16:15 Labetalol HCl (Normodyne Iv Push) 20 mg PRN Q2HR PRN IVP HYPERTENSION, SEE COMMENTS Last administered on 02/13/18at 00:30; Start 02/13/18 at 00:30 Active Scripts Active Keppra (Levetiracetam) 500 Mg Tablet 1 Tab PO BID Cipro (Ciprofloxacin Hcl) 500 Mg Tablet 1 Tab PO BID Vitals/I & O Vital Sign - Last 24 Hours 02/12/18 02/12/18 02/12/18 02/12/18 11:44 12:34 12:51 13:07 Temp 100.0 100.0 Pulse 121 130 130 116 Resp 21 29 20 19 B/P (MAP) 141/96 (111) Pulse Ox 96 100 98 96 O2 Delivery Room Air 02/12/18 02/12/18 02/12/18 02/12/18 13:59 14:19 14:59 15:39 Pulse 110 102 100 94 Resp 20 Pulse Ox 93 96 02/12/18 02/12/18 02/12/18 02/12/18 16:19 16:39 17:19 17:39 Pulse 122 98 91 86 Resp 19 Pulse Ox 96 02/12/18 02/12/18 02/13/18 02/13/18 20:00 23:43 00:30 03:30 Pulse 100 83 81 Resp 17 17 B/P (MAP) 214/112 (146) 214/112 141/79 (99) Pulse Ox 96 O2 Delivery Room Air Room Air Room Air 02/13/18 02/13/18 07:00 08:00 Temp 98.9 98.9 Pulse 67 Resp 17 B/P (MAP) 158/95 (116) O2 Delivery Room Air Room Air Intake and Output 02/12/18 02/12/18 02/13/18 15:00 23:00 07:00 Intake Total 1110 ml 150 ml Output Total 760 ml Balance 1110 ml 150 ml -[address] HEAD WO CONTRAST No acute intracranial hemorrhage or midline shift or mass-effect or extra-axial fluid collection is seen. Chronic ventriculomegaly and generalized cerebral atrophy is seen. This is unchanged. No new focal hypodense area or sulci effacement is seen to indicate an acute infarct or edema radiographically. No skull fracture or pneumocephalus is seen. No opacification of the mastoid sinuses or the paranasal sinuses is seen. Impression: No new intracranial abnormality is seen. SILVER WU MD Feb 13, 2018 10:48
[2018-02-13 10:53] VITALS: BP 148/92
--- NOTE | 2018-02-13 12:43 | PDOC ---
PROGRESS NOTES Chief Complaint Chief Complaint UTI, acute metabolic encephalopathy seizure, recurrent h/o seizure on keppra non compliance KARAN, vasomotor nephropathy on CKD 3 dm2 htn gout metabolic encephalopathy post ictal confusion History of Present Illness History of Present Illness neuro consult follwing, wants placement [place] cont keppra - try PT and OT SW dvt, gi ppx Vitals Vitals Vital Signs Date Time Temp Pulse Resp B/P (MAP) Pulse Ox O2 Delivery O2 Flow Rate FiO2 02/13/18 10:53 98.6 72 17 148/92 (110) Room Air 98.6 02/12/18 23:43 96 Labs LABS Laboratory Tests Test 02/12/18 16:22 02/12/18 17:35 02/12/18 20:42 02/13/18 06:33 Urine Collection Type Unknown Urine Color Yellow Urine Clarity Clear Urine pH 5.5 Urine Specific [place] 1.015 Urine Protein >=300 mg/dL (NEG-TRACE) Urine Glucose (UA) Negative mg/dL (NEG) Urine Ketones (Stick) Negative mg/dL (NEG) Urine Blood Small (NEG) Urine Nitrite Positive (NEG) Urine Bilirubin Negative (NEG) Urine Urobilinogen Dipstick 0.2 mg/dL (0.2 mg/dL) Urine Leukocyte Esterase Moderate (NEG) Urine RBC 1-2 /HPF (0-2) Urine WBC 20-40 /HPF (0-4) Urine Squamous Epithelial Cells Mod /LPF Urine Bacteria Many /HPF (0-FEW) Urine Opiates Screen Neg (NEG) Urine Methadone Screen Neg (NEG) Urine Barbiturates Neg (NEG) Urine Phencyclidine Screen Neg (NEG) Urine Amphetamine/Methamphetamine Neg (NEG) Urine Benzodiazepines Screen Neg (NEG) Urine Cocaine Screen Neg (NEG) Urine Cannabinoids Screen Pos (NEG) Urine Ethyl Alcohol Neg (NEG) Lactic Acid Level 1.4 mmol/L (0.4-2.0) Glucose (Fingerstick) 90 mg/dL (70-99) 86 mg/dL (70-99) Test 02/13/18 08:15 White Blood Count 5.4 x10^3/uL (4.0-11.0) Red Blood Count 4.17 x10^6/uL (4.30-5.70) Hemoglobin 14.2 g/dL (13.0-17.5) Hematocrit 40.6 % (39.0-53.0) Mean Corpuscular Volume 97 fL (79-100) Mean Corpuscular Hemoglobin 34 pg (25-35) Mean Corpuscular Hemoglobin Concent 35 g/dL (31-37) Red Cell Distribution Width 13.8 % (11.5-14.5) Platelet Count 133 x10^3/uL (140-400) Neutrophils (%) (Auto) 68 % (31-73) Lymphocytes (%) (Auto) 22 % (24-48) Monocytes (%) (Auto) 9 % (0-9) Eosinophils (%) (Auto) 0 % (0-3) Basophils (%) (Auto) 1 % (0-3) Neutrophils # (Auto) 3.7 x10^3uL (1.8-7.7) Lymphocytes # (Auto) 1.2 x10^3/uL (1.0-4.8) Monocytes # (Auto) 0.5 x10^3/uL (0.0-1.1) Eosinophils # (Auto) 0.0 x10^3/uL (0.0-0.7) Basophils # (Auto) 0.0 x10^3/uL (0.0-0.2) Sodium Level 141 mmol/L (136-145) Potassium Level 3.7 mmol/L (3.5-5.1) Chloride Level 106 mmol/L (98-107) Carbon Dioxide Level 25 mmol/L (21-32) Anion Gap 10 (6-14) Blood Urea Nitrogen 17 mg/dL (8-26) Creatinine 1.6 mg/dL (0.7-1.3) Estimated GFR (Cockcroft-Gault) 54.2 BUN/Creatinine Ratio 11 (6-20) Glucose Level 98 mg/dL (70-99) Calcium Level 8.8 mg/dL (8.5-10.1) Total Bilirubin 0.8 mg/dL (0.2-1.0) Aspartate Amino Transf (AST/SGOT) 32 U/L (15-37) Alanine Aminotransferase (ALT/SGPT) 13 U/L (16-63) Alkaline Phosphatase 54 U/L (46-116) Total Protein 7.5 g/dL (6.4-8.2) Albumin 3.2 g/dL (3.4-5.0) Albumin/Globulin Ratio 0.7 (1.0-1.7) Assessment and Plan Assessmemt and Plan Problems Medical Problems: (1) Seizure Status: Acute Comment Review of Relevant I have reviewed the following items olena (where applicable) has been applied. Labs Laboratory Tests Test 02/12/18 11:50 02/12/18 16:22 02/12/18 17:35 02/12/18 20:42 White Blood Count 6.8 x10^3/uL (4.0-11.0) Red Blood Count 4.52 x10^6/uL (4.30-5.70) Hemoglobin 15.6 g/dL (13.0-17.5) Hematocrit 45.2 % (39.0-53.0) Mean Corpuscular Volume 100 fL (79-100) Mean Corpuscular Hemoglobin 35 pg (25-35) Mean Corpuscular Hemoglobin Concent 35 g/dL (31-37) Red Cell Distribution Width 13.7 % (11.5-14.5) Platelet Count 153 x10^3/uL (140-400) Neutrophils (%) (Auto) 61 % (31-73) Lymphocytes (%) (Auto) 29 % (24-48) Monocytes (%) (Auto) 9 % (0-9) Eosinophils (%) (Auto) 0 % (0-3) Basophils (%) (Auto) 1 % (0-3) Neutrophils # (Auto) 4.2 x10^3uL (1.8-7.7) Lymphocytes # (Auto) 2.0 x10^3/uL (1.0-4.8) Monocytes # (Auto) 0.6 x10^3/uL (0.0-1.1) Eosinophils # (Auto) 0.0 x10^3/uL (0.0-0.7) Basophils # (Auto) 0.0 x10^3/uL (0.0-0.2) Sodium Level 139 mmol/L (136-145) Potassium Level 3.8 mmol/L (3.5-5.1) Chloride Level 99 mmol/L (98-107) Carbon Dioxide Level 14 mmol/L (21-32) Anion Gap 26 (6-14) Blood Urea Nitrogen 26 mg/dL (8-26) Creatinine 1.9 mg/dL (0.7-1.3) Estimated GFR (Cockcroft-Gault) 44.4 Glucose Level 167 mg/dL (70-99) Calcium Level 10.0 mg/dL (8.5-10.1) Magnesium Level 2.4 mg/dL (1.8-2.4) Creatine Kinase 133 U/L (39-308) Creatine Kinase MB (Mass) 1.7 ng/mL (0.0-3.6) Creatine Kinase MB Relative Index 1.3 % (0-4) Ethyl Alcohol Level < 10 mg/dL (0-10) Urine Collection Type Unknown Urine Color Yellow Urine Clarity Clear Urine pH 5.5 Urine Specific [place] 1.015 Urine Protein >=300 mg/dL (NEG-TRACE) Urine Glucose (UA) Negative mg/dL (NEG) Urine Ketones (Stick) Negative mg/dL (NEG) Urine Blood Small (NEG) Urine Nitrite Positive (NEG) Urine Bilirubin Negative (NEG) Urine Urobilinogen Dipstick 0.2 mg/dL (0.2 mg/dL) Urine Leukocyte Esterase Moderate (NEG) Urine RBC 1-2 /HPF (0-2) Urine WBC 20-40 /HPF (0-4) Urine Squamous Epithelial Cells Mod /LPF Urine Bacteria Many /HPF (0-FEW) Urine Opiates Screen Neg (NEG) Urine Methadone Screen Neg (NEG) Urine Barbiturates Neg (NEG) Urine Phencyclidine Screen Neg (NEG) Urine Amphetamine/Methamphetamine Neg (NEG) Urine Benzodiazepines Screen Neg (NEG) Urine Cocaine Screen Neg (NEG) Urine Cannabinoids Screen Pos (NEG) Urine Ethyl Alcohol Neg (NEG) Lactic Acid Level 1.4 mmol/L (0.4-2.0) Glucose (Fingerstick) 90 mg/dL (70-99) Test 02/13/18 06:33 02/13/18 08:15 Glucose (Fingerstick) 86 mg/dL (70-99) White Blood Count 5.4 x10^3/uL (4.0-11.0) Red Blood Count 4.17 x10^6/uL (4.30-5.70) Hemoglobin 14.2 g/dL (13.0-17.5) Hematocrit 40.6 % (39.0-53.0) Mean Corpuscular Volume 97 fL (79-100) Mean Corpuscular Hemoglobin 34 pg (25-35) Mean Corpuscular Hemoglobin Concent 35 g/dL (31-37) Red Cell Distribution Width 13.8 % (11.5-14.5) Platelet Count 133 x10^3/uL (140-400) Neutrophils (%) (Auto) 68 % (31-73) Lymphocytes (%) (Auto) 22 % (24-48) Monocytes (%) (Auto) 9 % (0-9) Eosinophils (%) (Auto) 0 % (0-3) Basophils (%) (Auto) 1 % (0-3) Neutrophils # (Auto) 3.7 x10^3uL (1.8-7.7) Lymphocytes # (Auto) 1.2 x10^3/uL (1.0-4.8) Monocytes # (Auto) 0.5 x10^3/uL (0.0-1.1) Eosinophils # (Auto) 0.0 x10^3/uL (0.0-0.7) Basophils # (Auto) 0.0 x10^3/uL (0.0-0.2) Sodium Level 141 mmol/L (136-145) Potassium Level 3.7 mmol/L (3.5-5.1) Chloride Level 106 mmol/L (98-107) Carbon Dioxide Level 25 mmol/L (21-32) Anion Gap 10 (6-14) Blood Urea Nitrogen 17 mg/dL (8-26) Creatinine 1.6 mg/dL (0.7-1.3) Estimated GFR (Cockcroft-Gault) 54.2 BUN/Creatinine Ratio 11 (6-20) Glucose Level 98 mg/dL (70-99) Calcium Level 8.8 mg/dL (8.5-10.1) Total Bilirubin 0.8 mg/dL (0.2-1.0) Aspartate Amino Transf (AST/SGOT) 32 U/L (15-37) Alanine Aminotransferase (ALT/SGPT) 13 U/L (16-63) Alkaline Phosphatase 54 U/L (46-116) Total Protein 7.5 g/dL (6.4-8.2) Albumin 3.2 g/dL (3.4-5.0) Albumin/Globulin Ratio 0.7 (1.0-1.7) Laboratory Tests Test 02/12/18 16:22 02/12/18 17:35 02/12/18 20:42 02/13/18 06:33 Urine Collection Type Unknown Urine Color Yellow Urine Clarity Clear Urine pH 5.5 Urine Specific [place] 1.015 Urine Protein >=300 mg/dL (NEG-TRACE) Urine Glucose (UA) Negative mg/dL (NEG) Urine Ketones (Stick) Negative mg/dL (NEG) Urine Blood Small (NEG) Urine Nitrite Positive (NEG) Urine Bilirubin Negative (NEG) Urine Urobilinogen Dipstick 0.2 mg/dL (0.2 mg/dL) Urine Leukocyte Esterase Moderate (NEG) Urine RBC 1-2 /HPF (0-2) Urine WBC 20-40 /HPF (0-4) Urine Squamous Epithelial Cells Mod /LPF Urine Bacteria Many /HPF (0-FEW) Urine Opiates Screen Neg (NEG) Urine Methadone Screen Neg (NEG) Urine Barbiturates Neg (NEG) Urine Phencyclidine Screen Neg (NEG) Urine Amphetamine/Methamphetamine Neg (NEG) Urine Benzodiazepines Screen Neg (NEG) Urine Cocaine Screen Neg (NEG) Urine Cannabinoids Screen Pos (NEG) Urine Ethyl Alcohol Neg (NEG) Lactic Acid Level 1.4 mmol/L (0.4-2.0) Glucose (Fingerstick) 90 mg/dL (70-99) 86 mg/dL (70-99) Test 02/13/18 08:15 White Blood Count 5.4 x10^3/uL (4.0-11.0) Red Blood Count 4.17 x10^6/uL (4.30-5.70) Hemoglobin 14.2 g/dL (13.0-17.5) Hematocrit 40.6 % (39.0-53.0) Mean Corpuscular Volume 97 fL (79-100) Mean Corpuscular Hemoglobin 34 pg (25-35) Mean Corpuscular Hemoglobin Concent 35 g/dL (31-37) Red Cell Distribution Width 13.8 % (11.5-14.5) Platelet Count 133 x10^3/uL (140-400) Neutrophils (%) (Auto) 68 % (31-73) Lymphocytes (%) (Auto) 22 % (24-48) Monocytes (%) (Auto) 9 % (0-9) Eosinophils (%) (Auto) 0 % (0-3) Basophils (%) (Auto) 1 % (0-3) Neutrophils # (Auto) 3.7 x10^3uL (1.8-7.7) Lymphocytes # (Auto) 1.2 x10^3/uL (1.0-4.8) Monocytes # (Auto) 0.5 x10^3/uL (0.0-1.1) Eosinophils # (Auto) 0.0 x10^3/uL (0.0-0.7) Basophils # (Auto) 0.0 x10^3/uL (0.0-0.2) Sodium Level 141 mmol/L (136-145) Potassium Level 3.7 mmol/L (3.5-5.1) Chloride Level 106 mmol/L (98-107) Carbon Dioxide Level 25 mmol/L (21-32) Anion Gap 10 (6-14) Blood Urea Nitrogen 17 mg/dL (8-26) Creatinine 1.6 mg/dL (0.7-1.3) Estimated GFR (Cockcroft-Gault) 54.2 BUN/Creatinine Ratio 11 (6-20) Glucose Level 98 mg/dL (70-99) Calcium Level 8.8 mg/dL (8.5-10.1) Total Bilirubin 0.8 mg/dL (0.2-1.0) Aspartate Amino Transf (AST/SGOT) 32 U/L (15-37) Alanine Aminotransferase (ALT/SGPT) 13 U/L (16-63) Alkaline Phosphatase 54 U/L (46-116) Total Protein 7.5 g/dL (6.4-8.2) Albumin 3.2 g/dL (3.4-5.0) Albumin/Globulin Ratio 0.7 (1.0-1.7) Medications Current Medications Sodium Chloride 1,000 ml @ 1,000 mls/hr 1X ONCE IV Last administered on at 12:01; Start 02/12/18 at 12:00; Stop 02/12/18 at 12:59; Status DC Lorazepam (Ativan) 1 mg 1X ONCE IV Last administered on 02/12/18at 12:00; Start 02/12/18 at 12:00; Stop 02/12/18 at 12:02; Status DC Levetiracetam 1000 mg/Dextrose 110 ml @ 440 mls/hr 1X ONCE IV Last administered on 02/12/18at 12:15; Start 02/12/18 at 12:00; Stop 02/12/18 at 12:14; Status DC Lorazepam (Ativan) 2 mg 1X ONCE IV Last administered on 02/12/18at 12:53; Start 02/12/18 at 13:00; Stop 02/12/18 at 13:01; Status DC Lorazepam (Ativan) 2 mg 1X ONCE IV Last administered on 02/12/18at 13:37; Start 02/12/18 at 13:45; Stop 02/12/18 at 13:46; Status DC Haloperidol Lactate (Haldol Inj) 5 mg 1X ONCE IVP Last administered on at 16:00; Start 02/12/18 at 16:00; Stop 02/12/18 at 16:01; Status DC Lorazepam (Ativan) 1 mg 1X ONCE IV Last administered on 02/12/18at 16:00; Start 02/12/18 at 16:00; Stop 02/12/18 at 16:01; Status DC Ondansetron HCl (Zofran) 4 mg PRN Q8HRS PRN IV NAUSEA/VOMITING; Start 02/12/18 at 16:00; Stop 02/13/18 at 15:59 Sodium Chloride 1,000 ml @ 100 mls/hr Q10H IV Last administered on 02/12/18at 16 :36; Start 02/12/18 at 15:55; Stop 02/13/18 at 15:54 Lorazepam (Ativan) 2 mg PRN Q6HRS PRN IV seizure activity Last administered on 02/12/18at 16:39; Start 02/12/18 at 16:00 Levetiracetam 500 mg/Dextrose 105 ml @ 420 mls/hr Q12HR IV Last administered on 02/13/18at 09:05; Start 02/12/18 at 21:00; Stop 02/13/18 at 10:49; Status DC Levetiracetam 500 mg/Dextrose 105 ml @ 420 mls/hr Q12HR IV ; Start 02/12/18 at 21:00; Status UNV Lorazepam (Ativan) 2 mg PRN Q4HRS PRN IV ANXIETY / AGITATION; Start 02/12/18 at 16:00 Acetaminophen (Tylenol) 650 mg PRN Q6HRS PRN PO FEVER/HEADACHE; Start 02/12/18 at 16:00 Ondansetron HCl (Zofran) 4 mg PRN Q6HRS PRN IV NAUSEA/VOMITING 1ST CHOICE; Start 02/12/18 at 16:00 Morphine Sulfate (Morphine Sulfate) 2 mg PRN Q2HR PRN IV MODERATE TO SEVERE PAIN; Start 02/12/18 at 16:00 Tramadol HCl (Ultram) 50 mg PRN Q6HRS PRN PO MILD TO MODERATE PAIN; Start at 16:00 Docusate Sodium (Colace) 100 mg PRN DAILY PRN PO HARD STOOLS; Start 02/12/18 at 16:00 Sodium Chloride 1,000 ml @ 150 mls/hr Q6H40M IV Last administered on 02/13/18at 09:04; Start 02/12/18 at 16:00 Famotidine (Pepcid Vial) 20 mg QHS IVP Last administered on 02/12/18at 20:12; Start 02/12/18 at 21:00 Enoxaparin Sodium (Lovenox 40mg Syringe) 40 mg Q24H SQ Last administered on 02/12at 20:13; Start 02/12/18 at 21:00 Insulin Human Lispro (HumaLOG) 0-7 UNITS TIDWMEALS SQ ; Start 02/12/18 at 17:00 Dextrose (Dextrose 50%-Water Syringe) 12.5 gm PRN Q15MIN PRN IV SEE COMMENTS; Start 02/12/18 at 16:15 Labetalol HCl (Normodyne Iv Push) 20 mg PRN Q2HR PRN IVP HYPERTENSION, SEE COMMENTS Last administered on 02/13/18at 00:30; Start 02/13/18 at 00:30 Levetiracetam (Keppra) 500 mg BID PO ; Start 02/13/18 at 21:00 Active Scripts Active Keppra (Levetiracetam) 500 Mg Tablet 1 Tab PO BID Cipro (Ciprofloxacin Hcl) 500 Mg Tablet 1 Tab PO BID Vitals/I & O Vital Sign - Last 24 Hours 02/12/18 02/12/18 02/12/18 02/12/18 12:51 13:07 13:59 14:19 Pulse 130 116 110 102 Resp 20 19 Pulse Ox 98 96 93 02/12/18 02/12/18 02/12/18 02/12/18 14:59 15:39 16:19 16:39 Pulse 100 94 122 98 Resp 20 19 Pulse Ox 96 96 02/12/18 02/12/18 02/12/18 02/12/18 17:19 17:39 20:00 23:43 Pulse 91 86 100 Resp 17 B/P (MAP) 214/112 (146) Pulse Ox 96 O2 Delivery Room Air Room Air 02/13/18 02/13/18 02/13/18 02/13/18 00:30 03:30 07:00 08:00 Temp 98.9 98.9 Pulse 83 81 67 Resp 17 17 B/P (MAP) 214/112 141/79 (99) 158/95 (116) O2 Delivery Room Air Room Air Room Air 02/13/18 10:53 Temp 98.6 98.6 Pulse 72 Resp 17 B/P (MAP) 148/92 (110) O2 Delivery Room Air Intake and Output 02/12/18 02/12/18 02/13/18 15:00 23:00 07:00 Intake Total 1110 ml 150 ml Output Total 760 ml Balance 1110 ml 150 ml -760 ml AVA AGUILAR MD Feb 13, 2018 12:43
[2018-02-13] MEDS: cefTRIAXone IV Push 1 GM VIAL. IVP SCH (13:43)
[2018-02-13 15:00] VITALS: BP 165/106
[2018-02-13 19:00] VITALS: BP 137/83
[2018-02-13] MEDS: FAMOTIDINE 20 MG/2 ML VIAL IVP SCH (20:49)
[2018-02-13] MEDS: levETIRAcetam 500 MG TABLET PO SCH (20:49)
[2018-02-13] MEDS: LACTOBACILLUS RHAMNOSUS GG 1 CAPSULE. PO SCH (20:50)
[2018-02-13] MEDS: ENOXAPARIN 40 MG/0.4 ML SYRINGE. SQ SCH (20:50)
[2018-02-13 23:00] VITALS: BP 148/106
[2018-02-14] MEDS: IV NORMAL SALINE 1000ML BAG 1,000 ML IV SCH ×3 (01:20→14:40)
[2018-02-14 03:00] VITALS: BP_SYST 128; BP_SYST 162; BP_DIAS 111; BP_DIAS 67
[2018-02-14 07:30] VITALS: BP 161/88
[2018-02-14] MEDS: INSULIN LISPRO 300 UNITS/3 ML INSULN.PEN. SQ SCH ×2 (08:00→12:00)
[2018-02-14] MEDS: LACTOBACILLUS RHAMNOSUS GG 1 CAPSULE. PO SCH (08:34)
[2018-02-14] MEDS: levETIRAcetam 500 MG TABLET PO SCH (08:34)
[2018-02-14] MEDS ORDERED: amLODIPine BESYLATE 10 MG TABLET PO SCH (11:10)
[2018-02-14 11:20] VITALS: BP 169/97
[2018-02-14 11:46] LABS: CALCIUM 8.6 mg/dL (8.5-10.1); CREATININE 1.5 mg/dL (0.7-1.3); GFR 58.4; POTASSIUM 3.5 mmol/L (3.5-5.1)
--- NOTE | 2018-02-14 12:09 | PDOC ---
PROGRESS NOTES Assessment Problems Medical Problems: (1) Seizure Status: Acute Epilepsy, I last saw him for this during his November hospital stay Psychiatric disorder Prior medication noncompliance. He complains of sedation from levetiracetam Plan Continue levetiracetam He will follow up in my office to discuss alternative anticonvulsants if sedation persists. Placement, last time [facility] but apparently this was not accomplished. Therapy does not believe he needs to go to shelter , so therefore okay for discharged to home with assistance Subjective Admits that sometimes he delays taking levetiracetam because it makes him sleepy but note that he is on multiple other sedating medications. Objective Vital Signs Date Time Temp Pulse Resp B/P (MAP) Pulse Ox O2 Delivery O2 Flow Rate FiO2 02/14/18 11:20 97.9 63 20 169/97 (121) 98 Room Air 97.9 Intake and Output 02/14/18 07:00 Intake Total 1200 ml Output Total 900 ml Balance 300 ml Intake Oral 1200 ml Output Urine Total 900 ml # Voids 5 PHYSICAL EXAM Alert. Oriented to "hospital" and person. Does not know the date PERRL. EOMI. CN: no focal findings. Muscle tone: normal. Muscle strength: 3-4/5 DTR: 1+ Plantar reflex: Flexor Gait: not examined in bed. Sensory exam: no abnormal findings. No cerebellar signs elicited. Review of Relevant I have reviewed the following items olena (where applicable) has been applied. Labs Laboratory Tests Test 02/12/18 16:22 02/12/18 17:35 02/12/18 20:42 02/13/18 06:33 Urine Collection Type Unknown Urine Color Yellow Urine Clarity Clear Urine pH 5.5 Urine Specific [place] 1.015 Urine Protein >=300 mg/dL (NEG-TRACE) Urine Glucose (UA) Negative mg/dL (NEG) Urine Ketones (Stick) Negative mg/dL (NEG) Urine Blood Small (NEG) Urine Nitrite Positive (NEG) Urine Bilirubin Negative (NEG) Urine Urobilinogen Dipstick 0.2 mg/dL (0.2 mg/dL) Urine Leukocyte Esterase Moderate (NEG) Urine RBC 1-2 /HPF (0-2) Urine WBC 20-40 /HPF (0-4) Urine Squamous Epithelial Cells Mod /LPF Urine Bacteria Many /HPF (0-FEW) Urine Opiates Screen Neg (NEG) Urine Methadone Screen Neg (NEG) Urine Barbiturates Neg (NEG) Urine Phencyclidine Screen Neg (NEG) Urine Amphetamine/Methamphetamine Neg (NEG) Urine Benzodiazepines Screen Neg (NEG) Urine Cocaine Screen Neg (NEG) Urine Cannabinoids Screen Pos (NEG) Urine Ethyl Alcohol Neg (NEG) Lactic Acid Level 1.4 mmol/L (0.4-2.0) Glucose (Fingerstick) 90 mg/dL (70-99) 86 mg/dL (70-99) Test 02/13/18 08:15 02/13/18 17:18 02/14/18 07:41 02/14/18 11:28 White Blood Count 5.4 x10^3/uL (4.0-11.0) Red Blood Count 4.17 x10^6/uL (4.30-5.70) Hemoglobin 14.2 g/dL (13.0-17.5) Hematocrit 40.6 % (39.0-53.0) Mean Corpuscular Volume 97 fL (79-100) Mean Corpuscular Hemoglobin 34 pg (25-35) Mean Corpuscular Hemoglobin Concent 35 g/dL (31-37) Red Cell Distribution Width 13.8 % (11.5-14.5) Platelet Count 133 x10^3/uL (140-400) Neutrophils (%) (Auto) 68 % (31-73) Lymphocytes (%) (Auto) 22 % (24-48) Monocytes (%) (Auto) 9 % (0-9) Eosinophils (%) (Auto) 0 % (0-3) Basophils (%) (Auto) 1 % (0-3) Neutrophils # (Auto) 3.7 x10^3uL (1.8-7.7) Lymphocytes # (Auto) 1.2 x10^3/uL (1.0-4.8) Monocytes # (Auto) 0.5 x10^3/uL (0.0-1.1) Eosinophils # (Auto) 0.0 x10^3/uL (0.0-0.7) Basophils # (Auto) 0.0 x10^3/uL (0.0-0.2) Sodium Level 141 mmol/L (136-145) 138 mmol/L (136-145) Potassium Level 3.7 mmol/L (3.5-5.1) 3.5 mmol/L (3.5-5.1) Chloride Level 106 mmol/L (98-107) 105 mmol/L (98-107) Carbon Dioxide Level 25 mmol/L (21-32) 28 mmol/L (21-32) Anion Gap 10 (6-14) 5 (6-14) Blood Urea Nitrogen 17 mg/dL (8-26) 15 mg/dL (8-26) Creatinine 1.6 mg/dL (0.7-1.3) 1.5 mg/dL (0.7-1.3) Estimated GFR (Cockcroft-Gault) 54.2 58.4 BUN/Creatinine Ratio 11 (6-20) Glucose Level 98 mg/dL (70-99) 103 mg/dL (70-99) Calcium Level 8.8 mg/dL (8.5-10.1) 8.6 mg/dL (8.5-10.1) Total Bilirubin 0.8 mg/dL (0.2-1.0) Aspartate Amino Transf (AST/SGOT) 32 U/L (15-37) Alanine Aminotransferase (ALT/SGPT) 13 U/L (16-63) Alkaline Phosphatase 54 U/L (46-116) Total Protein 7.5 g/dL (6.4-8.2) Albumin 3.2 g/dL (3.4-5.0) Albumin/Globulin Ratio 0.7 (1.0-1.7) Glucose (Fingerstick) 96 mg/dL (70-99) 95 mg/dL (70-99) Test 02/14/18 11:43 Glucose (Fingerstick) 113 mg/dL (70-99) Laboratory Tests Test 02/13/18 17:18 02/14/18 07:41 02/14/18 11:28 02/14/18 11:43 Glucose (Fingerstick) 96 mg/dL (70-99) 95 mg/dL (70-99) 113 mg/dL (70-99) Sodium Level 138 mmol/L (136-145) Potassium Level 3.5 mmol/L (3.5-5.1) Chloride Level 105 mmol/L (98-107) Carbon Dioxide Level 28 mmol/L (21-32) Anion Gap 5 (6-14) Blood Urea Nitrogen 15 mg/dL (8-26) Creatinine 1.5 mg/dL (0.7-1.3) Estimated GFR (Cockcroft-Gault) 58.4 Glucose Level 103 mg/dL (70-99) Calcium Level 8.6 mg/dL (8.5-10.1) Medications Current Medications Sodium Chloride 1,000 ml @ 1,000 mls/hr 1X ONCE IV Last administered on at 12:01; Start 02/12/18 at 12:00; Stop 02/12/18 at 12:59; Status DC Lorazepam (Ativan) 1 mg 1X ONCE IV Last administered on 02/12/18at 12:00; Start 02/12/18 at 12:00; Stop 02/12/18 at 12:02; Status DC Levetiracetam 1000 mg/Dextrose 110 ml @ 440 mls/hr 1X ONCE IV Last administered on 02/12/18at 12:15; Start 02/12/18 at 12:00; Stop 02/12/18 at 12:14; Status DC Lorazepam (Ativan) 2 mg 1X ONCE IV Last administered on 02/12/18at 12:53; Start 02/12/18 at 13:00; Stop 02/12/18 at 13:01; Status DC Lorazepam (Ativan) 2 mg 1X ONCE IV Last administered on 02/12/18at 13:37; Start 02/12/18 at 13:45; Stop 02/12/18 at 13:46; Status DC Haloperidol Lactate (Haldol Inj) 5 mg 1X ONCE IVP Last administered on at 16:00; Start 02/12/18 at 16:00; Stop 02/12/18 at 16:01; Status DC Lorazepam (Ativan) 1 mg 1X ONCE IV Last administered on 02/12/18at 16:00; Start 02/12/18 at 16:00; Stop 02/12/18 at 16:01; Status DC Ondansetron HCl (Zofran) 4 mg PRN Q8HRS PRN IV NAUSEA/VOMITING; Start 02/12/18 at 16:00; Stop 02/13/18 at 15:59; Status DC Sodium Chloride 1,000 ml @ 100 mls/hr Q10H IV Last administered on 02/12/18at 16 :36; Start 02/12/18 at 15:55; Stop 02/13/18 at 15:54; Status DC Lorazepam (Ativan) 2 mg PRN Q6HRS PRN IV seizure activity Last administered on 02/12/18at 16:39; Start 02/12/18 at 16:00 Levetiracetam 500 mg/Dextrose 105 ml @ 420 mls/hr Q12HR IV Last administered on 02/13/18at 09:05; Start 02/12/18 at 21:00; Stop 02/13/18 at 10:49; Status DC Levetiracetam 500 mg/Dextrose 105 ml @ 420 mls/hr Q12HR IV ; Start 02/12/18 at 21:00; Status UNV Lorazepam (Ativan) 2 mg PRN Q4HRS PRN IV ANXIETY / AGITATION; Start 02/12/18 at 16:00 Acetaminophen (Tylenol) 650 mg PRN Q6HRS PRN PO FEVER/HEADACHE; Start 02/12/18 at 16:00 Ondansetron HCl (Zofran) 4 mg PRN Q6HRS PRN IV NAUSEA/VOMITING 1ST CHOICE; Start 02/12/18 at 16:00 Morphine Sulfate (Morphine Sulfate) 2 mg PRN Q2HR PRN IV MODERATE TO SEVERE PAIN; Start 02/12/18 at 16:00 Tramadol HCl (Ultram) 50 mg PRN Q6HRS PRN PO MILD TO MODERATE PAIN; Start at 16:00 Docusate Sodium (Colace) 100 mg PRN DAILY PRN PO HARD STOOLS; Start 02/12/18 at 16:00 Sodium Chloride 1,000 ml @ 150 mls/hr Q6H40M IV Last administered on 02/14/18at 08:34; Start 02/12/18 at 16:00 Famotidine (Pepcid Vial) 20 mg QHS IVP Last administered on 02/13/18at 20:49; Start 02/12/18 at 21:00; Stop 02/14/18 at 11:05; Status DC Enoxaparin Sodium (Lovenox 40mg Syringe) 40 mg Q24H SQ Last administered on 02/13at 20:50; Start 02/12/18 at 21:00 Insulin Human Lispro (HumaLOG) 0-7 UNITS TIDWMEALS SQ ; Start 02/12/18 at 17:00 Dextrose (Dextrose 50%-Water Syringe) 12.5 gm PRN Q15MIN PRN IV SEE COMMENTS; Start 02/12/18 at 16:15 Labetalol HCl (Normodyne Iv Push) 20 mg PRN Q2HR PRN IVP HYPERTENSION, SEE COMMENTS Last administered on 02/13/18at 00:30; Start 02/13/18 at 00:30 Levetiracetam (Keppra) 500 mg BID PO Last administered on 02/14/18at 08:34; Start 02/13/18 at 21:00 Ceftriaxone Sodium 1 gm/ Dextrose 50 ml @ 100 mls/hr Q24H IV ; Start 02/13/18 at 12:45; Status UNV Ceftriaxone Sodium (Rocephin) 1 gm Q24H IVP Last administered on 02/13/18at 13:43 ; Start 02/13/18 at 13:30 Lactobacillus Rhamnosus (Culturelle) 1 cap BID PO Last administered on at 08:34; Start 02/13/18 at 21:00 Amlodipine Besylate (Norvasc) 10 mg DAILY PO ; Start 02/14/18 at 11:10 Active Scripts Active Keppra (Levetiracetam) 500 Mg Tablet 1 Tab PO BID Cipro (Ciprofloxacin Hcl) 500 Mg Tablet 1 Tab PO BID Vitals/I & O Vital Sign - Last 24 Hours 02/13/18 02/13/18 02/13/18 02/13/18 15:00 19:00 20:00 23:00 Temp 97.7 98.5 98.4 97.7 98.5 98.4 Pulse 73 76 68 Resp 17 20 20 B/P (MAP) 165/106 (125) 137/83 (101) 148/106 (120) Pulse Ox 97 98 99 O2 Delivery Room Air Room Air Room Air Room Air 02/14/18 02/14/18 02/14/18 02/14/18 03:00 07:30 08:00 11:20 Temp 97.4 98.1 97.9 97.4 98.1 97.9 Pulse 66 62 63 Resp 20 18 20 B/P (MAP) 162/111 (128) 161/88 (112) 169/97 (121) Pulse Ox 96 100 98 O2 Delivery Room Air Room Air Room Air Room Air Intake and Output 02/13/18 02/13/18 02/14/18 15:00 23:00 07:00 Intake Total 800 ml 400 ml Output Total 900 ml Balance 800 ml -500 ml SILVER WU MD Feb 14, 2018 12:09
[2018-02-14] MEDS: cefTRIAXone IV Push 1 GM VIAL. IVP SCH (12:16)
--- NOTE | 2018-02-14 14:13 | PDOC3 ---
Discharge Summary IPC Date of Admission: Feb 12, 2018 Discharge Date: Feb 14, 2018 Admitting Diagnosis seizure, recurrent, likely epilepsy h/o seizure on keppra non compliance? KARAN, vasomotor ckd3 dm2 htn gout metabolic encephalopathy post ictal confusion Final Diagnosis CONSULTS neuro Brief Hospital Course Patient is a 57 year old male who presents with seizure activity TODAy. pt is very confused , mumbling saying 'what is going on" , cannot contribute any history. All history got from ERP. pt was dced here 3 months ago for seizure and non compliance. not sure if he takes keppra at home this time. He was found seizure by family and EMS was called. Pt was noticed another time seizure in ER , lasting 60s. pt never really back to his baseline to talk, kept confused. pt's mental status back to baseline now, still mild confused, not sure if this is his baseline exactly. he doesnot know the day. lives with mother. i talked to mother today on the phone, who said no family came to see pt in the past 2 days, but as per mother , he sounds normal to her. pt not qualified for SNF. he insists he is taking keppra at home. Cr better with IVF. dc home with keppra , add amlodipine. dc time 35min. HEENT: Head is normocephalic, atraumatic. mild confusion, knows place, but not day. NECK: Supple. LUNGS: Clear to auscultation. HEART: RRR, S1, S2 present. Peripheral pulses intact ABDOMEN: Soft, nontender. Positive bowel sounds. EXTREMITIES: Without any cyanosis. NEUROLOGIC: Normal speech, normal tone PSYCHIATRIC: Normal affect, normal mood. SKIN: No ulcerations Disposition home CONDITION AT DISCHARGE: Improved, Stable Scheduled Ciprofloxacin Hcl (Cipro), 1 TAB PO BID Levetiracetam (Keppra), 1 TAB PO BID MIYA LOPEZ MD Feb 14, 2018 14:13
[2018-02-14 15:47] VITALS: BP 164/62
== END 2018-02-14 15:55 | disposition home or self-care (01) | DRG 100 ==
LOC: ER 11:44 → 6 SOUTH 15:45 → 2 NORTH 17:10 → 6 SOUTH 02-13 11:09
PROVIDERS: ADMIT Internal Medicine; ATTEND Internal Medicine
DX: G40.409 Other generalized epilepsy and epileptic syndromes, not intractable, without status epilepticus (principal); N17.0 Acute kidney failure with tubular necrosis; N39.0 Urinary tract infection, site not specified; N18.3 Chronic kidney disease, stage 3 (moderate); I12.9 Hypertensive chronic kidney disease with stage 1 through stage 4 chronic kidney disease, or unspecified chronic kidney disease; E11.22 Type 2 diabetes mellitus with diabetic chronic kidney disease; F99 Mental disorder, not otherwise specified; M10.9 Gout, unspecified; Z87.440 Personal history of urinary (tract) infections; Z83.3 Family history of diabetes mellitus; Z81.1 Family history of alcohol abuse and dependence; Z91.14 Patient's other noncompliance with medication regimen
CPT/HCPCS: 36415; 70450; 80048; 80053; 80177; 80307; 81001; 82553; 82962; 83605; 83735; 85025; 96361; 96365; 96375; 96376; G0480; J0696; J1630; J1650; J1815; J1953; J2060; J3490; J7030; S0028; 92610; 97116; 97535; 99285-25; G0479